=== PATIENT | male | born 1955 | race Hispanic/Latino ===

== ENCOUNTER 2017-07-28 21:50 | Inpatient (IN) | payer MEDICARE, OTHER ==
[~2017-07-28] VITALS: Ht 180.3 cm; Wt 110.2 kg
[~2017-07-28 21:50] MED LIST: AMLO10TA2 PO; CHOL200012 PO; FOLI1TAB85 PO; INSLAN SQ; RIFA550T PO; VIT B12 PO
[2017-07-28 22:14] LABS: BASOPHILS % (AUTO) 0.1 % (0.0-5.0); EOSINOPHILS % (AUTO) 0.1 % (0.0-8.0); HEMATOCRIT 40.4 % (42-54); LYMPHOCYTES % (AUTO) 4.4 % (21.0-51.0); MEAN CORPUSCULAR HEMOGLOBIN 31.1 pg (27.0-33.0); MEAN CORPUSCULAR HGB CONC 33.1 g/dL (32.0-36.0); MEAN CORPUSCULAR VOLUME 93.8 fL (79-99); MONOCYTES % (AUTO) 4.5 % (3.0-13.0); NEUTROPHILS % (AUTO) 90.9 % (40.0-77.0); NUCLEATED RED BLOOD CELLS 0.1 % (0.0-0.19); PLATELET COUNT (AUTO) 95 K/uL (130-400); RED BLOOD CELL COUNT(AUTO) 4.31 MIL/uL (4.50-6.20); RED CELL DISTRIBUTION WIDTH 16.4 % (11.0-15.5); WHITE BLOOD COUNT (AUTO) 9.8 K/uL (4.8-10.8)
[2017-07-28] MEDS ORDERED: NITROGLYCERIN 1GM/1 INCH PACKET TD ONE (22:16)
[2017-07-28 22:26] LABS: CREATININE 1.7 mg/dL (0.5-1.5); POTASSIUM 4.5 mmol/L (3.5-5.1)
[2017-07-28 22:32] LABS: ALBUMIN 2.6 g/dL (3.5-5.0); BILIRUBIN,TOTAL 0.7 mg/dL (0.2-1.0); TOTAL PROTEIN, SERUM 6.5 g/dL (6.0-8.3)
[2017-07-28 22:59] LABS: B-TYPE NATRIURETIC PEPTIDE 686 pg/mL (0-100)
[2017-07-28 23:09] LABS: INR 0.99 (0.85-1.15); PARTIAL THROMBOPLASTIN TIME 25.5 SEC (26.3-35.5); PROTHROMBIN TIME 10.4 SEC (9.6-11.6)
[2017-07-28] MEDS ORDERED: ASPIRIN 325 MG TABLET ONE (23:34)
[2017-07-29 00:25] LABS: APPEARANCE,URINE Clear (CLEAR); BILIRUBIN,URINE Negative (NEGATIVE); COLOR,URINE Yellow (YELLOW); GLUCOSE, URINE (UA) 250 mg/dL (NEGATIVE); KETONES,URINE Negative (NEGATIVE); LEUKOCYTE ESTERASE ,URINE Trace (NEGATIVE); NITRATE,URINE Negative (NEGATIVE); OCCULT BLOOD,URINE Large (NEGATIVE); PROTEIN,URINE 300 (NEGATIVE); UROBILINOGEN,URINE 0.2 mg/dL (0.2-1.0)
[2017-07-29 00:33] LABS: BACTERIA,URINE None Seen /HPF (None Seen); SQUAMOUS EPITHELIAL CELL,UR Rare /LPF (0-2); YEAST,URINE BUDDING None Seen /HPF (None Seen)
[2017-07-29] MEDS ORDERED: HYDRALAZINE HCL 20 MG/ML VIAL ONE ×2 (00:57→06:33)
[2017-07-29] MEDS ORDERED: GUAIFENESIN-DM 200/20 MG 10 ML PO PRN (01:15)
[2017-07-29] MEDS ORDERED: GLUCAGON 1MG KIT 1 MG ML IM PRN (01:15)
[2017-07-29] MEDS: LEVOFLOXACIN 500 MG/D5W 100 ML 100 ML IV SCH (01:15)
[2017-07-29] MEDS ORDERED: NITROGLYCERIN 0.4 MG SL TAB SL PRN (01:15)
[2017-07-29] MEDS: NITROGLYCERIN 1GM/1 INCH PACKET TD SCH ×5 (01:15→17:15)
[2017-07-29] MEDS ORDERED: ONDANSETRON HCL 4 MG/2 ML VIAL IV PRN (01:15)
[2017-07-29] MEDS ORDERED: DEXTROSE 50%-WATER 50 ML DISP.SYRIN IV PRN (01:15)
[2017-07-29 01:33] LABS: ABG BASE EXCESS -3.9 mmol/L (-2.0-3.0); ABG HCO3 20.4 mmol/L (21.0-28.0); ABG OXYGEN SATURATION 99.5 % (95.0-99.0); ABG PCO2 35 mmHg (35-48)
[2017-07-29 02:14] LABS: CREATINE KINASE MB 16.4 ng/mL (0.5-3.6); TROPONIN I 0.06 ng/mL (0.00-0.06)
[2017-07-29 05:32] LABS: HEMATOCRIT 34.6 % (42-54); MEAN CORPUSCULAR HEMOGLOBIN 31.9 pg (27.0-33.0); MEAN CORPUSCULAR HGB CONC 34.4 g/dL (32.0-36.0); MEAN CORPUSCULAR VOLUME 92.9 fL (79-99); PLATELET COUNT (AUTO) 87 K/uL (130-400); RED BLOOD CELL COUNT(AUTO) 3.72 MIL/uL (4.50-6.20); RED CELL DISTRIBUTION WIDTH 15.8 % (11.0-15.5); WHITE BLOOD COUNT (AUTO) 10.3 K/uL (4.8-10.8)
[2017-07-29 06:01] LABS: HEMOGLOBIN A1C 6.7 % (4.0-6.0)
[2017-07-29 06:04] LABS: ALBUMIN 2.1 g/dL (3.5-5.0); BILIRUBIN,TOTAL 0.4 mg/dL (0.2-1.0); CREATININE 1.8 mg/dL (0.5-1.5); POTASSIUM 4.2 mmol/L (3.5-5.1); THYROID STIMULATING HORMONE 1.95 uIU/mL (0.36-3.74); TOTAL PROTEIN, SERUM 5.3 g/dL (6.0-8.3)
[2017-07-29] MEDS ORDERED: NITROGLYCERIN 1GM/1 INCH PACKET TD ONE (06:33)
[2017-07-29] MEDS ORDERED: IPRATROPIUM/ALBUTEROL SULFATE 3 ML SOLUTION IH ONE ×2 (06:39→11:58)
[2017-07-29] MEDS: IPRATROPIUM/ALBUTEROL SULFATE 3 ML SOLUTION IH SCH ×4 (07:10→23:53)
[2017-07-29] MEDS: INSULIN HUMULIN R 100 UNIT/ML 3ML SQ SCH ×4 (07:30→23:34)
[2017-07-29] MEDS ORDERED: INSULIN HUMULIN R 100 UNIT/ML 3ML ONE (08:06)
[2017-07-29 08:30] LABS: CREATINE KINASE MB 11.4 ng/mL (0.5-3.6); TROPONIN I 0.06 ng/mL (0.00-0.06)
[2017-07-29] MEDS ORDERED: FUROSEMIDE 10 MG/ML 4ML VIAL ONE (08:47)
[2017-07-29] MEDS ORDERED: ASPIRIN 325 MG TABLET ONE (08:47)
[2017-07-29] MEDS ORDERED: BENZONATATE 100 MG CAPSULE PO ONE (08:47)
[2017-07-29] MEDS ORDERED: LEVOFLOXACIN 500 MG/D5W 100 ML 100 ML ONE (08:48)
[2017-07-29] MEDS ORDERED: ENOXAPARIN SODIUM 40 MG/0.4 ML SYRINGE SQ ONE (08:48)
[2017-07-29] MEDS ORDERED: FAMOTIDINE 20MG TAB 20 MG TAB ONE (08:48)
[2017-07-29] MEDS: FAMOTIDINE 20MG TAB 20 MG TAB PO SCH ×2 (09:00→21:15)
[2017-07-29] MEDS: FUROSEMIDE 10 MG/ML 4ML VIAL IVP SCH ×2 (09:00→21:15)
[2017-07-29] MEDS: ASPIRIN 325 MG TABLET PO SCH (09:00)
[2017-07-29] MEDS: BENZONATATE 100 MG CAPSULE PO SCH ×3 (09:00→21:15)
[2017-07-29] MEDS: ENOXAPARIN SODIUM 40 MG/0.4 ML SYRINGE SQ SCH (09:00)
[2017-07-29] MEDS ORDERED: LEVO500T89 PO (13:47)
[2017-07-29] MEDS ORDERED: FURO40TA5 PO (13:47)
[2017-07-29] MEDS ORDERED: BENZ-51 PO (13:47)
[2017-07-29] MEDS ORDERED: LABE100T PO (13:47)
[2017-07-29 16:00] VITALS: BP 154/87
[2017-07-29 19:36] VITALS: BP 172/91
[2017-07-29] MEDS ORDERED: METOPROLOL TARTRATE 25 MG TAB PO SCH (21:00)
[2017-07-29 23:40] VITALS: BP 170/87
[2017-07-30] VITALS (7 sets, daily range): BP systolic 147–184; BP diastolic 79–100
[2017-07-30] MEDS: NITROGLYCERIN 1GM/1 INCH PACKET TD SCH ×6 (01:30→17:50)
[2017-07-30] MEDS: LEVOFLOXACIN 500 MG/D5W 100 ML 100 ML IV SCH (01:41)
[2017-07-30] MEDS: HYDRALAZINE HCL 20 MG/ML VIAL IV PRN (03:13)
[2017-07-30 04:40] LABS: MEAN CORPUSCULAR HEMOGLOBIN 32.2 pg (27.0-33.0); MEAN CORPUSCULAR HGB CONC 34.4 g/dL (32.0-36.0); MEAN CORPUSCULAR VOLUME 93.6 fL (79-99); PLATELET COUNT (AUTO) 88 K/uL (130-400); RED BLOOD CELL COUNT(AUTO) 3.84 MIL/uL (4.50-6.20); RED CELL DISTRIBUTION WIDTH 16.5 % (11.0-15.5); WHITE BLOOD COUNT (AUTO) 9.7 K/uL (4.8-10.8)
[2017-07-30 04:56] LABS: B-TYPE NATRIURETIC PEPTIDE 419 pg/mL (0-100)
[2017-07-30 05:12] LABS: CREATINE KINASE MB 8.5 ng/mL (0.5-3.6); CREATININE 1.7 mg/dL (0.5-1.5); POTASSIUM 4.2 mmol/L (3.5-5.1); TROPONIN I 0.05 ng/mL (0.00-0.06)
[2017-07-30] MEDS: INSULIN HUMULIN R 100 UNIT/ML 3ML SQ SCH ×4 (05:45→21:58)
[2017-07-30] MEDS: IPRATROPIUM/ALBUTEROL SULFATE 3 ML SOLUTION IH SCH ×3 (06:38→18:41)
[2017-07-30] MEDS: FAMOTIDINE 20MG TAB 20 MG TAB PO SCH ×2 (09:27→22:00)
[2017-07-30] MEDS: FUROSEMIDE 10 MG/ML 4ML VIAL IVP SCH ×2 (09:27→22:00)
[2017-07-30] MEDS: ASPIRIN 325 MG TABLET PO SCH (09:27)
[2017-07-30] MEDS: METOPROLOL TARTRATE 25 MG TAB PO SCH ×2 (09:28→22:01)
[2017-07-30] MEDS: BENZONATATE 100 MG CAPSULE PO SCH ×3 (09:28→22:00)
[2017-07-30] MEDS: ENOXAPARIN SODIUM 40 MG/0.4 ML SYRINGE SQ SCH (09:28)
[2017-07-30] MEDS ORDERED: ENOXAPARIN SODIUM 120 MG/0.8ML SQ SCH (21:00)
[2017-07-30] MEDS: DOXYCYCLINE HYCLATE 100 MG TABLET PO SCH (22:00)
[2017-07-31] MEDS: LEVOFLOXACIN 500 MG/D5W 100 ML 100 ML IV SCH (01:07)
[2017-07-31] MEDS: NITROGLYCERIN 1GM/1 INCH PACKET TD SCH ×4 (01:07→09:30)
[2017-07-31 04:00] VITALS: BP 199/91
[2017-07-31 04:21] VITALS: BP 169/88
[2017-07-31 04:45] LABS: CREATININE 1.7 mg/dL (0.5-1.5); POTASSIUM 3.7 mmol/L (3.5-5.1)
[2017-07-31 05:00] VITALS: BP 174/83
[2017-07-31] MEDS: INSULIN HUMULIN R 100 UNIT/ML 3ML SQ SCH ×2 (05:38→11:44)
[2017-07-31] MEDS: IPRATROPIUM/ALBUTEROL SULFATE 3 ML SOLUTION IH SCH ×3 (06:21→11:18)
[2017-07-31 07:09] VITALS: BP 190/102
[2017-07-31] MEDS: DOXYCYCLINE HYCLATE 100 MG TABLET PO SCH (08:16)
[2017-07-31] MEDS: METOPROLOL TARTRATE 25 MG TAB PO SCH (08:16)
[2017-07-31] MEDS: BENZONATATE 100 MG CAPSULE PO SCH (08:16)
[2017-07-31] MEDS: ASPIRIN 325 MG TABLET PO SCH (08:16)
[2017-07-31] MEDS: FAMOTIDINE 20MG TAB 20 MG TAB PO SCH (08:16)
[2017-07-31] MEDS: HYDRALAZINE HCL 20 MG/ML VIAL IV PRN (08:17)
[2017-07-31] MEDS: ENOXAPARIN SODIUM 40 MG/0.4 ML SYRINGE SQ SCH (08:17)
[2017-07-31] MEDS ORDERED: FUROSEMIDE 40 MG TABLET PO SCH (09:00)
[2017-07-31] MEDS ORDERED: DOXY100T2 PO (09:50)
[2017-07-31] MEDS ORDERED: FURO40TA7 PO (09:50)
[2017-07-31 11:32] VITALS: BP 128/97
== END 2017-07-31 14:00 | disposition home or self-care (01) | DRG 291 ==
LOC: EDH 21:50 → OBSVTOIN 21:51 → EDHIP 21:51 → 2DH 07-29 12:23
PROVIDERS: ADMIT Internal Medicine; ATTEND Internal Medicine
DX: I13.0 Hypertensive heart and chronic kidney disease with heart failure and stage 1 through stage 4 chronic kidney disease, or unspecified chronic kidney disease (principal); I50.43 Acute on chronic combined systolic (congestive) and diastolic (congestive) heart failure; J96.01 Acute respiratory failure with hypoxia; D69.6 Thrombocytopenia, unspecified; E11.22 Type 2 diabetes mellitus with diabetic chronic kidney disease; K74.60 Unspecified cirrhosis of liver; N18.3 Chronic kidney disease, stage 3 (moderate); J98.11 Atelectasis; E66.9 Obesity, unspecified; F17.200 Nicotine dependence, unspecified, uncomplicated; I35.0 Nonrheumatic aortic (valve) stenosis; Z99.2 Dependence on renal dialysis; Z82.49 Family history of ischemic heart disease and other diseases of the circulatory system; Z68.33 Body mass index [BMI] 33.0-33.9, adult
CPT/HCPCS: 36415; 36600; 71045; 71250; 78582; 80048; 80053; 80061; 81001; 82550; 82553; 82803; 82948; 83036; 83874; 83880; 84443; 84484; 85025; 85027; 85378; 85610; 85730; 93005; 93306; 93970; 94640; 94660; 94664; 99291; A9540; A9558; J0360; J1650; J1815; J1940; J1956

== ENCOUNTER 2017-09-27 04:03 | Inpatient (IN) | payer SELFPAY ==
[~2017-09-27] VITALS: Ht 180.3 cm; Wt 106.1 kg
[~2017-09-27 04:03] MED LIST changes: +BENZ-51 PO; +DOXY100T2 PO; +FURO40TA7 PO; +LABE100T5 PO
[2017-09-27] MEDS ORDERED: ZOSYN 3.375GM+NS 50ML 50 ML IV ONE ×3 (04:30→21:27)
[2017-09-27] MEDS ORDERED: VANCOMYCIN 1GM+NS 250ML 250 ML IV ONE (04:30)
[2017-09-27 04:40] LABS: HEMATOCRIT 37.3 % (42-54); MEAN CORPUSCULAR HEMOGLOBIN 31.2 pg (27.0-33.0); MEAN CORPUSCULAR HGB CONC 34.3 g/dL (32.0-36.0); PLATELET COUNT (AUTO) 180 K/uL (130-400); RED CELL DISTRIBUTION WIDTH 14.3 % (11.0-15.5)
[2017-09-27 04:50] LABS: CREATININE 3.4 mg/dL (0.5-1.5); POTASSIUM 3.8 mmol/L (3.5-5.1); WHITE BLOOD COUNT (AUTO) 52.1 K/uL (4.8-10.8)
[2017-09-27 04:52] LABS: INR 1.17 (0.85-1.15); PROTHROMBIN TIME 12.2 SEC (9.6-11.6)
[2017-09-27 04:58] LABS: ABG BASE EXCESS -3.3 mmol/L (-2.0-3.0); ABG HCO3 21.2 mmol/L (21.0-28.0); ABG PCO2 37 mmHg (35-48)
[2017-09-27 05:00] LABS: ALBUMIN 1.7 g/dL (3.5-5.0); TOTAL PROTEIN, SERUM 6.4 g/dL (6.0-8.3)
[2017-09-27 05:08] LABS: BAND NEUTROPHILS % (MANUAL) 7 % (0-2); LYMPHOCYTES % (MANUAL) 3 % (22-44); MAN.DIFF COMMENT-IMPRESSION MANUAL DIFFERENTIAL; MONOCYTES % (MANUAL) 5 % (2-9); SEGMENTED NEUTROPHILS % 85 % (40-70)
[2017-09-27 05:10] LABS: PLATELET MORPHOLOGY COMMENT ADEQUATE
[2017-09-27 05:12] LABS: B-TYPE NATRIURETIC PEPTIDE 617 pg/mL (0-100)
[2017-09-27 05:44] LABS: CREATINE KINASE MB 6.6 ng/mL (0.5-3.6)
[2017-09-27 08:28] LABS: HEMATOCRIT 35.4 % (42-54); MEAN CORPUSCULAR HEMOGLOBIN 30.9 pg (27.0-33.0); MEAN CORPUSCULAR HGB CONC 34.1 g/dL (32.0-36.0); MEAN CORPUSCULAR VOLUME 90.7 fL (79-99); PLATELET COUNT (AUTO) 157 K/uL (130-400); RED CELL DISTRIBUTION WIDTH 14.2 % (11.0-15.5)
[2017-09-27 09:23] LABS: HEMOGLOBIN A1C 7.8 % (4.0-6.0)
[2017-09-27 09:38] LABS: WHITE BLOOD COUNT (AUTO) 45.8 K/uL (4.8-10.8)
[2017-09-27 09:39] LABS: BAND NEUTROPHILS % (MANUAL) 6 % (0-2); MAN.DIFF COMMENT-IMPRESSION MANUAL DIFFERENTIAL; MONOCYTES % (MANUAL) 4 % (2-9); SEGMENTED NEUTROPHILS % 90 % (40-70)
[2017-09-27 09:40] LABS: PLATELET MORPHOLOGY COMMENT ADEQUATE
[2017-09-27 10:37] LABS: APPEARANCE,URINE CLOUDY (CLEAR); BILIRUBIN,URINE SMALL (NEGATIVE); COLOR,URINE YELLOW (YELLOW); GLUCOSE, URINE (UA) NEGATIVE (NEGATIVE); KETONES,URINE 5 mg/dL (NEGATIVE); LEUKOCYTE ESTERASE ,URINE MODERATE (NEGATIVE); NITRATE,URINE NEGATIVE (NEGATIVE); OCCULT BLOOD,URINE LARGE (NEGATIVE); PROTEIN,URINE >=300 (NEGATIVE)
[2017-09-27 10:43] LABS: BACTERIA,URINE Moderate /HPF (None Seen); COARSE GRANULAR CASTS,URINE 0-2 /LPF (None Seen); SQUAMOUS EPITHELIAL CELL,UR Few /HPF (0-2); WBC,URINE TNTC /HPF (0-1)
[2017-09-27] MEDS: ZOSYN 3.375GM+NS 50ML 50 ML IV SCH ×2 (13:00→21:00)
[2017-09-27] MEDS ORDERED: CLONIDINE HCL 0.1 MG TABLET PO PRN (13:00)
[2017-09-27] MEDS ORDERED: COMPOUND IV REFRIGERATED 1 EACH IVSOLN MISC PRN (13:00)
[2017-09-27] MEDS ORDERED: VANCOMYCIN PROTOCOL PER PHARMACY IV SCH (13:00)
[2017-09-27] MEDS: VANCOMYCIN 1.5 GM in SODIUM CHLORIDE 0.9% 250 ML IV SCH (13:00)
[2017-09-27] MEDS ORDERED: LACTULOSE 20 GM/30 ML UDCUP PO PRN (13:00)
[2017-09-27] MEDS ORDERED: ONDANSETRON HCL 4 MG/2 ML VIAL IVP PRN (13:00)
[2017-09-27] MEDS: FAMOTIDINE 20MG TAB 20 MG TAB PO SCH (21:00)
[2017-09-28 00:01] LABS: CREATININE,URINE RANDOM 232 mg/dL (30-135); SODIUM,URINE RANDOM 29 mmol/l (40-220)
[2017-09-28 05:30] VITALS: BP 144/80
[2017-09-28 06:26] LABS: BASOPHILS % (AUTO) 0.7 % (0.0-5.0); EOSINOPHILS % (AUTO) 0.2 % (0.0-8.0); HEMATOCRIT 35.8 % (42-54); LYMPHOCYTES % (AUTO) 3.5 % (21.0-51.0); MEAN CORPUSCULAR HEMOGLOBIN 30.2 pg (27.0-33.0); MEAN CORPUSCULAR HGB CONC 33.7 g/dL (32.0-36.0); MEAN CORPUSCULAR VOLUME 89.6 fL (79-99); MONOCYTES % (AUTO) 2.9 % (3.0-13.0); NEUTROPHILS % (AUTO) 92.7 % (40.0-77.0); PLATELET COUNT (AUTO) 172 K/uL (130-400); RED BLOOD CELL COUNT(AUTO) 3.99 MIL/uL (4.50-6.20); RED CELL DISTRIBUTION WIDTH 14.5 % (11.0-15.5)
[2017-09-28 06:29] LABS: CREATININE 3.6 mg/dL (0.5-1.5); POTASSIUM 3.6 mmol/L (3.5-5.1)
[2017-09-28 06:32] LABS: WHITE BLOOD COUNT (AUTO) 37.6 K/uL (4.8-10.8)
[2017-09-28 08:00] VITALS: BP 143/83
[2017-09-28] MEDS ORDERED: FUROSEMIDE 10 MG/ML 10ML VIAL IVP SCH (08:15)
[2017-09-28] MEDS ORDERED: FURO40TA5 PO (09:11)
[2017-09-28] MEDS: FAMOTIDINE 20MG TAB 20 MG TAB PO SCH ×2 (09:56→21:27)
[2017-09-28] MEDS: MORPHINE SULFATE 4 MG/1ML SYG IVP PRN (09:56)
[2017-09-28] MEDS: ZOSYN 3.375GM+NS 50ML 50 ML IV SCH (10:02)
[2017-09-28] MEDS ORDERED: PHARMACY COMMUNICATION MISC SCH (11:15)
[2017-09-28] MEDS ORDERED: CEFAZOLIN 1GM / D5W 50ML 50 ML IV SCH (11:15)
[2017-09-28] MEDS: VANCOMYCIN 1.5 GM in SODIUM CHLORIDE 0.9% 250 ML IV SCH (13:00)
[2017-09-28] MEDS: CEFAZOLIN SODIUM 1 GM VIAL IVP SCH ×2 (13:09→23:57)
[2017-09-28 14:43] VITALS: BP 139/66
[2017-09-28 16:45] VITALS: BP 140/72
[2017-09-28] MEDS ORDERED: GLUCAGON 1MG KIT 1 MG ML IM PRN (17:45)
[2017-09-28] MEDS ORDERED: DEXTROSE 50%-WATER 50 ML DISP.SYRIN IV PRN (17:45)
[2017-09-28] MEDS: ZYVOX 600 MG TAB PO SCH (19:55)
[2017-09-28 20:00] VITALS: BP 140/85
[2017-09-28] MEDS: LABETALOL HCL 100 MG TABLET PO SCH (21:27)
[2017-09-28] MEDS: INSULIN HUMULIN R 100 UNIT/ML 3ML SQ SCH (21:43)
[2017-09-29] VITALS (7 sets, daily range): BP systolic 126–156; BP diastolic 67–91
[2017-09-29] MEDS: MORPHINE SULFATE 4 MG/1ML SYG IVP PRN ×2 (04:51→11:20)
[2017-09-29] MEDS: ZYVOX 600 MG TAB PO SCH ×2 (04:52→16:46)
[2017-09-29 06:17] LABS: BASOPHILS % (AUTO) 0.5 % (0.0-5.0); EOSINOPHILS % (AUTO) 0.5 % (0.0-8.0); HEMATOCRIT 33.1 % (42-54); MEAN CORPUSCULAR HEMOGLOBIN 31.5 pg (27.0-33.0); MEAN CORPUSCULAR HGB CONC 35.2 g/dL (32.0-36.0); MEAN CORPUSCULAR VOLUME 89.7 fL (79-99); PLATELET COUNT (AUTO) 170 K/uL (130-400); RED BLOOD CELL COUNT(AUTO) 3.69 MIL/uL (4.50-6.20); RED CELL DISTRIBUTION WIDTH 13.9 % (11.0-15.5)
[2017-09-29 06:35] LABS: CREATININE 3.2 mg/dL (0.5-1.5); POTASSIUM 3.6 mmol/L (3.5-5.1)
[2017-09-29] MEDS: INSULIN HUMULIN R 100 UNIT/ML 3ML SQ SCH ×4 (06:49→21:00)
[2017-09-29] MEDS ORDERED: FUROSEMIDE 10 MG/ML 10ML VIAL IVP SCH (08:15)
[2017-09-29] MEDS: FAMOTIDINE 20MG TAB 20 MG TAB PO SCH ×2 (11:19→21:16)
[2017-09-29] MEDS: LABETALOL HCL 100 MG TABLET PO SCH ×2 (11:19→21:16)
[2017-09-29] MEDS: CEFAZOLIN SODIUM 1 GM VIAL IVP SCH (11:20)
[2017-09-29] MEDS: ONDANSETRON HCL MDV 20ML 2 MG/ML VIAL IVP PRN (18:02)
[2017-09-30] MEDS: CEFAZOLIN SODIUM 1 GM VIAL IVP SCH ×2 (00:30→09:53)
[2017-09-30] MEDS: MORPHINE SULFATE 4 MG/1ML SYG IVP PRN ×2 (01:36→11:33)
[2017-09-30 04:41] VITALS: BP 129/77
[2017-09-30] MEDS: ZYVOX 600 MG TAB PO SCH ×2 (05:14→18:24)
[2017-09-30 05:50] LABS: BASOPHILS % (AUTO) 0.5 % (0.0-5.0); EOSINOPHILS % (AUTO) 0.8 % (0.0-8.0); HEMATOCRIT 34.4 % (42-54); LYMPHOCYTES % (AUTO) 7.4 % (21.0-51.0); MEAN CORPUSCULAR HEMOGLOBIN 31.1 pg (27.0-33.0); MEAN CORPUSCULAR HGB CONC 34.7 g/dL (32.0-36.0); MEAN CORPUSCULAR VOLUME 89.6 fL (79-99); MONOCYTES % (AUTO) 12.3 % (3.0-13.0); PLATELET COUNT (AUTO) 192 K/uL (130-400); RED BLOOD CELL COUNT(AUTO) 3.84 MIL/uL (4.50-6.20); WHITE BLOOD COUNT (AUTO) 14.4 K/uL (4.8-10.8)
[2017-09-30 06:20] LABS: CREATININE 2.9 mg/dL (0.5-1.5); POTASSIUM 3.7 mmol/L (3.5-5.1)
[2017-09-30] MEDS: INSULIN HUMULIN R 100 UNIT/ML 3ML SQ SCH ×4 (06:59→21:52)
[2017-09-30 08:00] VITALS: BP 134/76
[2017-09-30] MEDS: FAMOTIDINE 20MG TAB 20 MG TAB PO SCH ×2 (09:53→20:40)
[2017-09-30] MEDS: LABETALOL HCL 100 MG TABLET PO SCH ×2 (09:53→23:59)
[2017-09-30] MEDS: ONDANSETRON HCL MDV 20ML 2 MG/ML VIAL IVP PRN (11:32)
[2017-09-30 12:00] VITALS: BP 149/85
[2017-09-30 16:00] VITALS: BP 139/65
[2017-09-30] MEDS: TRAMADOL HCL 50 MG TABLET PO PRN (18:24)
[2017-09-30] MEDS: ENOXAPARIN SODIUM 30 MG/0.3 ML SQ SCH (18:24)
[2017-09-30 19:48] VITALS: BP 125/59
[2017-09-30] MEDS: FUROSEMIDE 10 MG/ML 2ML VIAL IVP SCH (20:40)
[2017-09-30 23:36] VITALS: BP 122/71
[2017-10-01 04:30] VITALS: BP 134/77
[2017-10-01 04:57] LABS: HEMATOCRIT 32.7 % (42-54); MEAN CORPUSCULAR HEMOGLOBIN 30.6 pg (27.0-33.0); MEAN CORPUSCULAR HGB CONC 33.9 g/dL (32.0-36.0); MEAN CORPUSCULAR VOLUME 90.3 fL (79-99); PLATELET COUNT (AUTO) 184 K/uL (130-400); RED BLOOD CELL COUNT(AUTO) 3.63 MIL/uL (4.50-6.20); RED CELL DISTRIBUTION WIDTH 14.5 % (11.0-15.5)
[2017-10-01 05:06] LABS: CREATININE 2.9 mg/dL (0.5-1.5); POTASSIUM 4.2 mmol/L (3.5-5.1)
[2017-10-01] MEDS: ZYVOX 600 MG TAB PO SCH ×2 (05:25→17:27)
[2017-10-01] MEDS: TRAMADOL HCL 50 MG TABLET PO PRN (05:26)
[2017-10-01] MEDS: INSULIN HUMULIN R 100 UNIT/ML 3ML SQ SCH ×4 (07:05→22:38)
[2017-10-01 07:30] VITALS: BP 125/67
[2017-10-01] MEDS ORDERED: ENOXAPARIN SODIUM 30 MG/0.3 ML SQ SCH (09:00)
[2017-10-01] MEDS: LABETALOL HCL 100 MG TABLET PO SCH ×2 (10:06→22:04)
[2017-10-01] MEDS: FUROSEMIDE 10 MG/ML 2ML VIAL IVP SCH ×2 (10:06→22:03)
[2017-10-01] MEDS: ENOXAPARIN SODIUM 30 MG/0.3 ML SQ SCH (10:06)
[2017-10-01] MEDS: FAMOTIDINE 20MG TAB 20 MG TAB PO SCH ×2 (10:06→22:03)
[2017-10-01 11:00] VITALS: BP 137/73
[2017-10-01] MEDS: CEFAZOLIN SODIUM 1 GM VIAL IVP SCH ×3 (12:47→23:31)
[2017-10-01] MEDS: MORPHINE SULFATE 4 MG/1ML SYG IVP PRN (15:45)
[2017-10-01 16:00] VITALS: BP 139/79
[2017-10-01 19:47] VITALS: BP 125/84
[2017-10-02 00:01] VITALS: BP 118/60
[2017-10-02 03:30] VITALS: BP 138/81
[2017-10-02] MEDS: ZYVOX 600 MG TAB PO SCH ×2 (03:47→17:42)
[2017-10-02] MEDS: TRAMADOL HCL 50 MG TABLET PO PRN ×3 (03:48→23:49)
[2017-10-02 04:45] LABS: HEMATOCRIT 34.1 % (42-54); MEAN CORPUSCULAR HEMOGLOBIN 31.1 pg (27.0-33.0); MEAN CORPUSCULAR HGB CONC 34.3 g/dL (32.0-36.0); MEAN CORPUSCULAR VOLUME 90.8 fL (79-99); NUCLEATED RED BLOOD CELLS 0.1 % (0.0-0.19); PLATELET COUNT (AUTO) 211 K/uL (130-400); RED BLOOD CELL COUNT(AUTO) 3.76 MIL/uL (4.50-6.20); RED CELL DISTRIBUTION WIDTH 14.3 % (11.0-15.5); WHITE BLOOD COUNT (AUTO) 8.9 K/uL (4.8-10.8)
[2017-10-02 05:00] LABS: CREATININE 2.7 mg/dL (0.5-1.5); POTASSIUM 3.7 mmol/L (3.5-5.1)
[2017-10-02] MEDS: INSULIN HUMULIN R 100 UNIT/ML 3ML SQ SCH ×4 (06:19→22:23)
[2017-10-02 08:00] VITALS: BP 146/80
[2017-10-02] MEDS: ENOXAPARIN SODIUM 30 MG/0.3 ML SQ SCH (10:03)
[2017-10-02] MEDS: LABETALOL HCL 100 MG TABLET PO SCH ×2 (10:03→20:51)
[2017-10-02] MEDS: FAMOTIDINE 20MG TAB 20 MG TAB PO SCH ×2 (10:03→20:50)
[2017-10-02] MEDS: FUROSEMIDE 10 MG/ML 2ML VIAL IVP SCH ×2 (10:04→20:50)
[2017-10-02 12:00] VITALS: BP 134/79
[2017-10-02] MEDS: CEFAZOLIN SODIUM 1 GM VIAL IVP SCH ×2 (12:37→23:03)
[2017-10-02] MEDS: MORPHINE SULFATE 4 MG/1ML SYG IVP PRN (12:37)
[2017-10-02 16:35] VITALS: BP 150/83
[2017-10-02 20:00] VITALS: BP 145/79
[2017-10-03 00:04] VITALS: BP 136/75
[2017-10-03] MEDS: ZYVOX 600 MG TAB PO SCH ×2 (04:49→16:37)
[2017-10-03 05:07] VITALS: BP 118/63
[2017-10-03] MEDS: INSULIN HUMULIN R 100 UNIT/ML 3ML SQ SCH ×4 (06:02→20:40)
[2017-10-03] MEDS: TRAMADOL HCL 50 MG TABLET PO PRN ×2 (07:02→16:37)
[2017-10-03 08:05] VITALS: BP 154/86
[2017-10-03] MEDS: LABETALOL HCL 100 MG TABLET PO SCH ×2 (08:41→20:35)
[2017-10-03] MEDS: FAMOTIDINE 20MG TAB 20 MG TAB PO SCH ×2 (08:42→20:35)
[2017-10-03] MEDS: FUROSEMIDE 10 MG/ML 2ML VIAL IVP SCH ×2 (08:42→20:36)
[2017-10-03] MEDS: ENOXAPARIN SODIUM 30 MG/0.3 ML SQ SCH (08:43)
[2017-10-03] MEDS: MORPHINE SULFATE 4 MG/1ML SYG IVP PRN (10:30)
[2017-10-03 10:35] LABS: HEMATOCRIT 32.3 % (42-54); MEAN CORPUSCULAR HEMOGLOBIN 30.3 pg (27.0-33.0); MEAN CORPUSCULAR HGB CONC 33.4 g/dL (32.0-36.0); MEAN CORPUSCULAR VOLUME 90.6 fL (79-99); PLATELET COUNT (AUTO) 182 K/uL (130-400); RED BLOOD CELL COUNT(AUTO) 3.57 MIL/uL (4.50-6.20); RED CELL DISTRIBUTION WIDTH 14.3 % (11.0-15.5); WHITE BLOOD COUNT (AUTO) 7.6 K/uL (4.8-10.8)
[2017-10-03 11:07] LABS: CREATININE 2.3 mg/dL (0.5-1.5); POTASSIUM 4.1 mmol/L (3.5-5.1)
[2017-10-03] MEDS: CEFAZOLIN SODIUM 1 GM VIAL IVP SCH ×2 (11:18→23:16)
[2017-10-03 11:55] VITALS: BP 131/65
[2017-10-03 16:00] VITALS: BP 136/64
[2017-10-03 19:20] VITALS: BP 135/79
[2017-10-04 00:43] VITALS: BP 161/84
[2017-10-04] MEDS: TRAMADOL HCL 50 MG TABLET PO PRN ×2 (00:49→09:42)
[2017-10-04] MEDS: ZYVOX 600 MG TAB PO SCH (05:11)
[2017-10-04 05:25] VITALS: BP 141/77
[2017-10-04] MEDS: INSULIN HUMULIN R 100 UNIT/ML 3ML SQ SCH ×2 (07:01→11:35)
[2017-10-04 07:25] VITALS: BP 145/77
[2017-10-04] MEDS: ENOXAPARIN SODIUM 30 MG/0.3 ML SQ SCH (09:00)
[2017-10-04] MEDS: FAMOTIDINE 20MG TAB 20 MG TAB PO SCH (09:34)
[2017-10-04] MEDS: LABETALOL HCL 100 MG TABLET PO SCH (09:34)
[2017-10-04] MEDS: FUROSEMIDE 10 MG/ML 2ML VIAL IVP SCH (09:34)
[2017-10-04 11:30] VITALS: BP 143/78
[2017-10-04] MEDS: CEFAZOLIN SODIUM 1 GM VIAL IVP SCH (11:33)
== END 2017-10-04 15:10 | disposition home or self-care (01) | DRG 872 ==
LOC: EDH 04:03 → EDHIP 04:04 → 4CH 09-28 04:08 → EDHIP 09-28 04:11 → 4CH 09-28 04:21 → 4BH 10-02 16:07
PROVIDERS: ADMIT Family Medicine; ATTEND Family Medicine
DX: A41.9 Sepsis, unspecified organism (principal); E11.22 Type 2 diabetes mellitus with diabetic chronic kidney disease; E11.622 Type 2 diabetes mellitus with other skin ulcer; N17.9 Acute kidney failure, unspecified; N18.4 Chronic kidney disease, stage 4 (severe); L03.116 Cellulitis of left lower limb; I13.0 Hypertensive heart and chronic kidney disease with heart failure and stage 1 through stage 4 chronic kidney disease, or unspecified chronic kidney disease; L97.929 Non-pressure chronic ulcer of unspecified part of left lower leg with unspecified severity; L03.115 Cellulitis of right lower limb; I50.9 Heart failure, unspecified; K70.30 Alcoholic cirrhosis of liver without ascites; N18.9 Chronic kidney disease, unspecified; T63.441A Toxic effect of venom of bees, accidental (unintentional), initial encounter; E11.65 Type 2 diabetes mellitus with hyperglycemia; E66.01 Morbid (severe) obesity due to excess calories; Z99.81 Dependence on supplemental oxygen; Z68.32 Body mass index [BMI] 32.0-32.9, adult; Z82.49 Family history of ischemic heart disease and other diseases of the circulatory system; Z83.3 Family history of diabetes mellitus
CPT/HCPCS: 36415; 36600; 71045; 76770; 80048; 80053; 80202; 80339; 81001; 82550; 82553; 82570; 82803; 82948; 83036; 83605; 83874; 83880; 84300; 84484; 84540; 85007; 85025; 85027; 85610; 85730; 87040; 87070; 87076; 87077; 87088; 87186; 93005; 93970; 97039; A4218; J0690; J1650; J1815; J1940; J2270; J2543; J3370; J7030

== ENCOUNTER 2017-11-21 10:25 | Inpatient (IN) | payer SELFPAY ==
[2017-11-21] VITALS: BP 169/84
[~2017-11-21] VITALS: Ht 180.3 cm; Wt 112.1 kg
[~2017-11-21 10:25] MED LIST changes: -AMLO10TA2 PO; -BENZ-51 PO; -CHOL200012 PO; -DOXY100T2 PO; -FOLI1TAB85 PO; +FURO40TA5 PO; -FURO40TA7 PO; -INSLAN SQ; -RIFA550T PO; -VIT B12 PO
[2017-11-21 11:20] LABS: CREATININE 1.7 mg/dL (0.5-1.5); EOSINOPHILS % (AUTO) 2.9 % (0.0-8.0); HEMATOCRIT 33.6 % (42-54); LYMPHOCYTES % (AUTO) 18.1 % (21.0-51.0); MEAN CORPUSCULAR HEMOGLOBIN 30.3 pg (27.0-33.0); MEAN CORPUSCULAR HGB CONC 33.5 g/dL (32.0-36.0); MEAN CORPUSCULAR VOLUME 90.5 fL (79-99); MONOCYTES % (AUTO) 10.7 % (3.0-13.0); NEUTROPHILS % (AUTO) 67.3 % (40.0-77.0); PLATELET COUNT (AUTO) 222 K/uL (130-400); POTASSIUM 3.8 mmol/L (3.5-5.1); RED BLOOD CELL COUNT(AUTO) 3.71 MIL/uL (4.50-6.20); RED CELL DISTRIBUTION WIDTH 14.9 % (11.0-15.5); WHITE BLOOD COUNT (AUTO) 8.7 K/uL (4.8-10.8)
[2017-11-21 11:25] LABS: ALBUMIN 2.2 g/dL (3.5-5.0); BILIRUBIN,TOTAL 0.4 mg/dL (0.2-1.0); TOTAL PROTEIN, SERUM 7.9 g/dL (6.0-8.3)
[2017-11-21] MEDS ORDERED: ZOSYN 3.375GM+NS 50ML 50 ML IV ONE ×2 (11:44→19:24)
[2017-11-21] MEDS ORDERED: VANCOMYCIN 1.75 GM in SODIUM CHLORIDE 0.9% 250 ML IV SCH (12:00)
[2017-11-21 12:21] LABS: APPEARANCE,URINE Clear (CLEAR); BILIRUBIN,URINE Negative (NEGATIVE); COLOR,URINE Yellow (YELLOW); GLUCOSE, URINE (UA) Negative (NEGATIVE); KETONES,URINE Negative (NEGATIVE); LEUKOCYTE ESTERASE ,URINE Negative (NEGATIVE); NITRATE,URINE Negative (NEGATIVE); OCCULT BLOOD,URINE Moderate (NEGATIVE); PROTEIN,URINE 300 (NEGATIVE); UROBILINOGEN,URINE 0.2 mg/dL (0.2-1.0)
[2017-11-21 12:31] LABS: SQUAMOUS EPITHELIAL CELL,UR 0-2 /HPF (0-2)
[2017-11-21 12:32] LABS: BACTERIA,URINE Few /HPF (None Seen)
[2017-11-21] MEDS ORDERED: GLUCAGON 1MG KIT 1 MG ML IM PRN (19:15)
[2017-11-21] MEDS ORDERED: DEXTROSE 50%-WATER 50 ML DISP.SYRIN IV PRN (19:15)
[2017-11-21 20:25] VITALS: BP 169/94
[2017-11-21] MEDS: INSULIN HUMULIN R 100 UNIT/ML 3ML SQ SCH (21:00)
[2017-11-21] MEDS: FAMOTIDINE 20MG TAB 20 MG TAB PO SCH (21:17)
[2017-11-22 04:22] VITALS: BP 146/78
[2017-11-22] MEDS: ZOSYN 3.375GM+NS 50ML 50 ML IV SCH ×3 (04:59→20:45)
[2017-11-22 05:41] LABS: BASOPHILS % (AUTO) 0.8 % (0.0-5.0); EOSINOPHILS % (AUTO) 2.9 % (0.0-8.0); HEMATOCRIT 32.7 % (42-54); LYMPHOCYTES % (AUTO) 19.1 % (21.0-51.0); MEAN CORPUSCULAR HEMOGLOBIN 30.4 pg (27.0-33.0); MEAN CORPUSCULAR HGB CONC 33.3 g/dL (32.0-36.0); MEAN CORPUSCULAR VOLUME 91.3 fL (79-99); MONOCYTES % (AUTO) 11.4 % (3.0-13.0); NEUTROPHILS % (AUTO) 65.8 % (40.0-77.0); PLATELET COUNT (AUTO) 232 K/uL (130-400); RED BLOOD CELL COUNT(AUTO) 3.58 MIL/uL (4.50-6.20); RED CELL DISTRIBUTION WIDTH 14.8 % (11.0-15.5); WHITE BLOOD COUNT (AUTO) 8.2 K/uL (4.8-10.8)
[2017-11-22] MEDS: INSULIN HUMULIN R 100 UNIT/ML 3ML SQ SCH ×4 (05:46→20:45)
[2017-11-22 05:51] LABS: HEMOGLOBIN A1C 5.5 % (4.0-6.0)
[2017-11-22 05:54] LABS: ALBUMIN 2.1 g/dL (3.5-5.0); BILIRUBIN,TOTAL 0.5 mg/dL (0.2-1.0); CREATININE 1.7 mg/dL (0.5-1.5); POTASSIUM 3.4 mmol/L (3.5-5.1); TOTAL PROTEIN, SERUM 7.3 g/dL (6.0-8.3)
[2017-11-22] MEDS ORDERED: HYDRALAZINE HCL 20 MG/ML VIAL IV PRN (06:15)
[2017-11-22 07:00] VITALS: BP 187/94
[2017-11-22] MEDS: FAMOTIDINE 20MG TAB 20 MG TAB PO SCH ×2 (08:59→20:44)
[2017-11-22] MEDS: ENOXAPARIN SODIUM 40 MG/0.4 ML SYRINGE SQ SCH (09:12)
[2017-11-22 11:00] VITALS: BP 163/80
[2017-11-22] MEDS ORDERED: GLIP5TAB11 PO (15:33)
[2017-11-22 16:00] VITALS: BP 197/92
[2017-11-22 19:00] VITALS: BP 194/102
[2017-11-22] MEDS: LABETALOL HCL 100 MG TABLET PO SCH (20:44)
[2017-11-22] MEDS: HYDRALAZINE HCL 25 MG TABLET PO SCH (20:45)
[2017-11-22] MEDS: IPRATROPIUM/ALBUTEROL SULFATE 3 ML SOLUTION IH SCH (21:03)
[2017-11-23] VITALS (25 sets, daily range): BP systolic 130–178; BP diastolic 60–102
[2017-11-23] MEDS: IPRATROPIUM/ALBUTEROL SULFATE 3 ML SOLUTION IH SCH ×5 (00:21→23:04)
[2017-11-23] MEDS: ZOSYN 3.375GM+NS 50ML 50 ML IV SCH ×3 (05:30→19:57)
[2017-11-23 06:16] LABS: BASOPHILS % (AUTO) 0.5 % (0.0-5.0); EOSINOPHILS % (AUTO) 3.2 % (0.0-8.0); HEMATOCRIT 29.1 % (42-54); LYMPHOCYTES % (AUTO) 22.6 % (21.0-51.0); MEAN CORPUSCULAR HEMOGLOBIN 32.1 pg (27.0-33.0); MEAN CORPUSCULAR HGB CONC 35.7 g/dL (32.0-36.0); MONOCYTES % (AUTO) 12.3 % (3.0-13.0); NEUTROPHILS % (AUTO) 61.4 % (40.0-77.0); PLATELET COUNT (AUTO) 197 K/uL (130-400); RED BLOOD CELL COUNT(AUTO) 3.23 MIL/uL (4.50-6.20); RED CELL DISTRIBUTION WIDTH 14.4 % (11.0-15.5); WHITE BLOOD COUNT (AUTO) 6.4 K/uL (4.8-10.8)
[2017-11-23 06:47] LABS: INR 1.02 (0.85-1.15); PARTIAL THROMBOPLASTIN TIME 30.3 SEC (26.3-35.5); PROTHROMBIN TIME 10.7 SEC (9.6-11.6)
[2017-11-23 07:24] LABS: CREATININE 1.7 mg/dL (0.5-1.5); POTASSIUM 3.4 mmol/L (3.5-5.1)
[2017-11-23] MEDS: INSULIN HUMULIN R 100 UNIT/ML 3ML SQ SCH ×4 (07:30→21:33)
[2017-11-23] MEDS: LABETALOL HCL 100 MG TABLET PO SCH ×2 (08:16→20:01)
[2017-11-23] MEDS: GLIPIZIDE 5 MG TABLET PO SCH (09:00)
[2017-11-23] MEDS: ENOXAPARIN SODIUM 40 MG/0.4 ML SYRINGE SQ SCH (09:00)
[2017-11-23] MEDS: HYDRALAZINE HCL 25 MG TABLET PO SCH ×3 (09:00→20:02)
[2017-11-23] MEDS ORDERED: VANCOMYCIN PROTOCOL PER PHARMACY IV SCH (10:15)
[2017-11-23] MEDS ORDERED: COMPOUND IV REFRIGERATED 1 EACH IVSOLN MISC PRN (10:30)
[2017-11-23] MEDS: VANCOMYCIN 1.5 GM in SODIUM CHLORIDE 0.9% 250 ML IV SCH (11:15)
[2017-11-23] MEDS ORDERED: SODIUM CHLORIDE 0.9% 1000ML 1,000 ML IV ONE (12:55)
[2017-11-23] MEDS ORDERED: MIDAZOLAM HCL 1 MG/ML 2ML VIAL ONE (13:58)
[2017-11-23] MEDS: SODIUM CHLORIDE 0.9% 1000ML 1,000 ML IV SCH (14:51)
[2017-11-23] MEDS ORDERED: MORPHINE SULFATE 2 MG/ML 1ML SYG IV PRN (15:00)
[2017-11-23] MEDS: FAMOTIDINE 20MG TAB 20 MG TAB PO SCH ×2 (16:45→20:02)
[2017-11-23] MEDS: FUROSEMIDE 40 MG TABLET PO SCH (16:46)
[2017-11-24 00:32] VITALS: BP 123/62
[2017-11-24 04:27] VITALS: BP 135/73
[2017-11-24] MEDS: ZOSYN 3.375GM+NS 50ML 50 ML IV SCH ×2 (05:08→13:53)
[2017-11-24 05:47] LABS: BASOPHILS % (AUTO) 1.1 % (0.0-5.0); EOSINOPHILS % (AUTO) 2.3 % (0.0-8.0); HEMATOCRIT 27.4 % (42-54); LYMPHOCYTES % (AUTO) 21.7 % (21.0-51.0); MEAN CORPUSCULAR HEMOGLOBIN 30.7 pg (27.0-33.0); MEAN CORPUSCULAR HGB CONC 33.7 g/dL (32.0-36.0); MONOCYTES % (AUTO) 12.4 % (3.0-13.0); NEUTROPHILS % (AUTO) 62.5 % (40.0-77.0); PLATELET COUNT (AUTO) 183 K/uL (130-400); RED BLOOD CELL COUNT(AUTO) 3.01 MIL/uL (4.50-6.20); RED CELL DISTRIBUTION WIDTH 14.4 % (11.0-15.5); WHITE BLOOD COUNT (AUTO) 7.2 K/uL (4.8-10.8)
[2017-11-24] MEDS: IPRATROPIUM/ALBUTEROL SULFATE 3 ML SOLUTION IH SCH ×4 (06:02→23:54)
[2017-11-24 06:11] LABS: CREATININE 1.8 mg/dL (0.5-1.5); POTASSIUM 3.5 mmol/L (3.5-5.1)
[2017-11-24] MEDS: INSULIN HUMULIN R 100 UNIT/ML 3ML SQ SCH ×4 (06:43→21:00)
[2017-11-24 08:00] VITALS: BP 153/74
[2017-11-24] MEDS ORDERED: POTASSIUM CHLORIDE 10% ELIXIR 20 MEQ/15 ML UDCUP PO PRN (08:30)
[2017-11-24] MEDS ORDERED: POTASSIUM CHLORIDE 20MEQ/100ML 100 ML IV PRN (08:30)
[2017-11-24] MEDS ORDERED: POTASSIUM CHLORIDE 20 MEQ ERTAB PO PRN (08:30)
[2017-11-24] MEDS ORDERED: LIDOCAINE HCL-MPF 1% 2ML VIAL IVP PRN (08:30)
[2017-11-24] MEDS: SODIUM CHLORIDE 0.9% 1000ML 1,000 ML IV SCH ×2 (09:02→17:31)
[2017-11-24] MEDS: FAMOTIDINE 20MG TAB 20 MG TAB PO SCH ×2 (09:05→21:25)
[2017-11-24] MEDS: HYDRALAZINE HCL 25 MG TABLET PO SCH ×3 (09:05→21:26)
[2017-11-24] MEDS: GLIPIZIDE 5 MG TABLET PO SCH (09:06)
[2017-11-24] MEDS: FUROSEMIDE 40 MG TABLET PO SCH (09:07)
[2017-11-24] MEDS: LABETALOL HCL 100 MG TABLET PO SCH ×2 (09:07→21:25)
[2017-11-24] MEDS: ENOXAPARIN SODIUM 40 MG/0.4 ML SYRINGE SQ SCH (09:09)
[2017-11-24] MEDS: VANCOMYCIN 1.5 GM in SODIUM CHLORIDE 0.9% 250 ML IV SCH (11:28)
[2017-11-24 12:00] VITALS: BP 114/72
[2017-11-24] MEDS ORDERED: HONEY 1 APPL/ML TUBE TP SCH (13:30)
[2017-11-24 16:00] VITALS: BP 137/78
[2017-11-24 20:33] VITALS: BP 149/85
[2017-11-25 00:14] VITALS: BP 138/75
[2017-11-25 04:32] VITALS: BP 153/80
[2017-11-25 05:49] LABS: BASOPHILS % (AUTO) 0.5 % (0.0-5.0); EOSINOPHILS % (AUTO) 3.9 % (0.0-8.0); HEMATOCRIT 28.6 % (42-54); LYMPHOCYTES % (AUTO) 22.2 % (21.0-51.0); MEAN CORPUSCULAR HEMOGLOBIN 29.6 pg (27.0-33.0); MEAN CORPUSCULAR HGB CONC 32.8 g/dL (32.0-36.0); MEAN CORPUSCULAR VOLUME 90.2 fL (79-99); MONOCYTES % (AUTO) 14.1 % (3.0-13.0); NEUTROPHILS % (AUTO) 59.3 % (40.0-77.0); PLATELET COUNT (AUTO) 151 K/uL (130-400); RED BLOOD CELL COUNT(AUTO) 3.18 MIL/uL (4.50-6.20); RED CELL DISTRIBUTION WIDTH 14.7 % (11.0-15.5); WHITE BLOOD COUNT (AUTO) 5.7 K/uL (4.8-10.8)
[2017-11-25 05:57] LABS: CREATININE 1.8 mg/dL (0.5-1.5)
[2017-11-25] MEDS: SODIUM CHLORIDE 0.9% 1000ML 1,000 ML IV SCH ×2 (06:51→20:11)
[2017-11-25] MEDS: IPRATROPIUM/ALBUTEROL SULFATE 3 ML SOLUTION IH SCH ×3 (07:10→18:46)
[2017-11-25] MEDS: INSULIN HUMULIN R 100 UNIT/ML 3ML SQ SCH ×4 (07:30→20:58)
[2017-11-25 08:00] VITALS: BP 155/86
[2017-11-25] MEDS: LABETALOL HCL 100 MG TABLET PO SCH ×2 (08:13→20:54)
[2017-11-25] MEDS: GLIPIZIDE 5 MG TABLET PO SCH (08:13)
[2017-11-25] MEDS: FUROSEMIDE 40 MG TABLET PO SCH (08:13)
[2017-11-25] MEDS: FAMOTIDINE 20MG TAB 20 MG TAB PO SCH ×2 (08:13→20:53)
[2017-11-25] MEDS: ENOXAPARIN SODIUM 40 MG/0.4 ML SYRINGE SQ SCH (08:16)
[2017-11-25] MEDS: HYDRALAZINE HCL 25 MG TABLET PO SCH ×3 (09:00→20:54)
[2017-11-25 11:57] VITALS: BP 137/62
[2017-11-25 17:32] VITALS: BP 142/74
[2017-11-25 21:00] VITALS: BP 144/81
[2017-11-25] MEDS ORDERED: LEVOFLOXACIN 500 MG TABLET PO SCH (21:00)
[2017-11-26] MEDS: IPRATROPIUM/ALBUTEROL SULFATE 3 ML SOLUTION IH SCH ×3 (00:07→11:36)
[2017-11-26 00:37] VITALS: BP 134/76
[2017-11-26 04:43] VITALS: BP 133/72
[2017-11-26] MEDS: INSULIN HUMULIN R 100 UNIT/ML 3ML SQ SCH ×3 (06:02→16:30)
[2017-11-26 08:00] VITALS: BP 171/88
[2017-11-26] MEDS: FUROSEMIDE 40 MG TABLET PO SCH (09:17)
[2017-11-26] MEDS: GLIPIZIDE 5 MG TABLET PO SCH (09:17)
[2017-11-26] MEDS: LABETALOL HCL 100 MG TABLET PO SCH (09:17)
[2017-11-26] MEDS: HYDRALAZINE HCL 25 MG TABLET PO SCH ×2 (09:17→14:00)
[2017-11-26] MEDS: FAMOTIDINE 20MG TAB 20 MG TAB PO SCH (09:17)
[2017-11-26] MEDS: ENOXAPARIN SODIUM 40 MG/0.4 ML SYRINGE SQ SCH (09:18)
[2017-11-26] MEDS: SODIUM CHLORIDE 0.9% 1000ML 1,000 ML IV SCH (09:31)
[2017-11-26 09:52] LABS: POTASSIUM 3.7 mmol/L (3.5-5.1)
[2017-11-26 11:00] VITALS: BP 152/71
== END 2017-11-26 16:55 | disposition home or self-care (01) | DRG 623 ==
LOC: EDH 10:25 → EDHIP 10:26 → 3AH 20:05
PROVIDERS: ADMIT Family Medicine; ATTEND Family Medicine
PROC: 0JBP0ZZ Excision of Left Lower Leg Subcutaneous Tissue and Fascia, Open Approach (ICD-10-PCS; principal; 2017-11-23 13:44)
DX: E11.622 Type 2 diabetes mellitus with other skin ulcer (principal); L03.116 Cellulitis of left lower limb; I13.2 Hypertensive heart and chronic kidney disease with heart failure and with stage 5 chronic kidney disease, or end stage renal disease; L97.929 Non-pressure chronic ulcer of unspecified part of left lower leg with unspecified severity; N18.6 End stage renal disease; D64.9 Anemia, unspecified; K74.60 Unspecified cirrhosis of liver; B96.4 Proteus (mirabilis) (morganii) as the cause of diseases classified elsewhere; E11.22 Type 2 diabetes mellitus with diabetic chronic kidney disease; E11.51 Type 2 diabetes mellitus with diabetic peripheral angiopathy without gangrene; E66.9 Obesity, unspecified; Z68.34 Body mass index [BMI] 34.0-34.9, adult; F10.10 Alcohol abuse, uncomplicated; F17.200 Nicotine dependence, unspecified, uncomplicated; G40.909 Epilepsy, unspecified, not intractable, without status epilepticus; I25.10 Atherosclerotic heart disease of native coronary artery without angina pectoris; I50.9 Heart failure, unspecified; J44.9 Chronic obstructive pulmonary disease, unspecified; Z82.49 Family history of ischemic heart disease and other diseases of the circulatory system; Z83.3 Family history of diabetes mellitus; Z86.14 Personal history of Methicillin resistant Staphylococcus aureus infection; I87.8 Other specified disorders of veins; Z28.21 Immunization not carried out because of patient refusal
CPT/HCPCS: 36415; 71045; 73590; 80048; 80053; 80202; 81001; 82140; 82948; 83036; 83605; 83880; 84132; 84484; 85025; 85610; 85730; 87040; 87070; 87076; 87077; 87186; 88304; 93005; 93970; 94640; 94664; J0360; J1650; J1815; J2250; J2543; J3370; J7030; J7070

== ENCOUNTER → 2017-11-29 | Outpatient (CLI) | payer SELFPAY ==
[~2017-11-29] MED LIST changes: +GLIP5TAB11 PO; +LABE100T PO; -LABE100T5 PO
[2017-11-29 11:07] VITALS: BP 196/101
== END | disposition home or self-care (01) ==
LOC: WHH 10:00
PROVIDERS: ATTEND Surgery
DX: E11.622 Type 2 diabetes mellitus with other skin ulcer (principal); L97.821 Non-pressure chronic ulcer of other part of left lower leg limited to breakdown of skin; I87.2 Venous insufficiency (chronic) (peripheral); E11.22 Type 2 diabetes mellitus with diabetic chronic kidney disease; I13.2 Hypertensive heart and chronic kidney disease with heart failure and with stage 5 chronic kidney disease, or end stage renal disease; N18.6 End stage renal disease; I50.9 Heart failure, unspecified; E11.51 Type 2 diabetes mellitus with diabetic peripheral angiopathy without gangrene; I25.10 Atherosclerotic heart disease of native coronary artery without angina pectoris; J44.9 Chronic obstructive pulmonary disease, unspecified; G40.909 Epilepsy, unspecified, not intractable, without status epilepticus; F17.200 Nicotine dependence, unspecified, uncomplicated; F10.10 Alcohol abuse, uncomplicated; E66.9 Obesity, unspecified; Z68.34 Body mass index [BMI] 34.0-34.9, adult
CPT/HCPCS: 97606

== ENCOUNTER → 2017-12-06 | Outpatient (CLI) | payer SELFPAY ==
[~2017-12-06] MED LIST changes: -LABE100T PO; +LABE100T5 PO
[2017-12-06 08:52] VITALS: BP 173/93
== END | disposition home or self-care (01) ==
LOC: WHH 08:00
PROVIDERS: ATTEND Surgery
DX: E11.622 Type 2 diabetes mellitus with other skin ulcer (principal); L97.821 Non-pressure chronic ulcer of other part of left lower leg limited to breakdown of skin; I83.028 Varicose veins of left lower extremity with ulcer other part of lower leg; E11.22 Type 2 diabetes mellitus with diabetic chronic kidney disease; I13.2 Hypertensive heart and chronic kidney disease with heart failure and with stage 5 chronic kidney disease, or end stage renal disease; N18.6 End stage renal disease; I50.9 Heart failure, unspecified; E11.51 Type 2 diabetes mellitus with diabetic peripheral angiopathy without gangrene; I25.10 Atherosclerotic heart disease of native coronary artery without angina pectoris; J44.9 Chronic obstructive pulmonary disease, unspecified; G40.909 Epilepsy, unspecified, not intractable, without status epilepticus; F17.200 Nicotine dependence, unspecified, uncomplicated; F10.10 Alcohol abuse, uncomplicated; E66.9 Obesity, unspecified; Z68.34 Body mass index [BMI] 34.0-34.9, adult
CPT/HCPCS: 97605; A6452

== ENCOUNTER → 2017-12-09 | Outpatient (CLI) | payer SELFPAY ==
[~2017-12-09] MED LIST changes: +LIDOCAINE HCL 4% LTA SOL 4 ML VIAL TP ONE
[2017-12-09 13:32] VITALS: BP 138/79
== END | disposition home or self-care (01) ==
LOC: WHH 09:00
PROVIDERS: ATTEND Surgery
DX: E11.622 Type 2 diabetes mellitus with other skin ulcer (principal); L97.821 Non-pressure chronic ulcer of other part of left lower leg limited to breakdown of skin; I83.028 Varicose veins of left lower extremity with ulcer other part of lower leg; E11.22 Type 2 diabetes mellitus with diabetic chronic kidney disease; I13.2 Hypertensive heart and chronic kidney disease with heart failure and with stage 5 chronic kidney disease, or end stage renal disease; N18.6 End stage renal disease; I50.9 Heart failure, unspecified; E11.51 Type 2 diabetes mellitus with diabetic peripheral angiopathy without gangrene; I25.10 Atherosclerotic heart disease of native coronary artery without angina pectoris; J44.9 Chronic obstructive pulmonary disease, unspecified; G40.909 Epilepsy, unspecified, not intractable, without status epilepticus; F17.200 Nicotine dependence, unspecified, uncomplicated; F10.10 Alcohol abuse, uncomplicated; E66.9 Obesity, unspecified; Z68.34 Body mass index [BMI] 34.0-34.9, adult
CPT/HCPCS: 11042; 11045; 97606; A6452

== ENCOUNTER → 2018-02-10 | Outpatient (CLI) | payer SELFPAY ==
[~2018-02-10] MED LIST changes: -LIDOCAINE HCL 4% LTA SOL 4 ML VIAL TP ONE
[2018-02-10 11:42] VITALS: BP 195/108
== END | disposition home or self-care (01) ==
LOC: WHH 09:45
PROVIDERS: ATTEND Surgery
DX: I83.028 Varicose veins of left lower extremity with ulcer other part of lower leg (principal); E11.622 Type 2 diabetes mellitus with other skin ulcer; L97.821 Non-pressure chronic ulcer of other part of left lower leg limited to breakdown of skin; E11.22 Type 2 diabetes mellitus with diabetic chronic kidney disease; I13.2 Hypertensive heart and chronic kidney disease with heart failure and with stage 5 chronic kidney disease, or end stage renal disease; N18.6 End stage renal disease; I50.9 Heart failure, unspecified; E11.51 Type 2 diabetes mellitus with diabetic peripheral angiopathy without gangrene; I25.10 Atherosclerotic heart disease of native coronary artery without angina pectoris; J44.9 Chronic obstructive pulmonary disease, unspecified; G40.909 Epilepsy, unspecified, not intractable, without status epilepticus; E66.9 Obesity, unspecified; K74.60 Unspecified cirrhosis of liver; F17.210 Nicotine dependence, cigarettes, uncomplicated; F10.10 Alcohol abuse, uncomplicated; Z68.34 Body mass index [BMI] 34.0-34.9, adult; Z99.2 Dependence on renal dialysis; Z79.4 Long term (current) use of insulin
CPT/HCPCS: 99211; A6021; A6452

== ENCOUNTER → 2018-02-17 | Outpatient (CLI) | payer SELFPAY ==
[2018-02-17 13:58] VITALS: BP 205/106
== END | disposition home or self-care (01) ==
LOC: WHH 09:45
PROVIDERS: ATTEND Surgery
DX: I83.028 Varicose veins of left lower extremity with ulcer other part of lower leg (principal); E11.622 Type 2 diabetes mellitus with other skin ulcer; L97.221 Non-pressure chronic ulcer of left calf limited to breakdown of skin; E11.22 Type 2 diabetes mellitus with diabetic chronic kidney disease; I13.2 Hypertensive heart and chronic kidney disease with heart failure and with stage 5 chronic kidney disease, or end stage renal disease; N18.6 End stage renal disease; I50.9 Heart failure, unspecified; E11.51 Type 2 diabetes mellitus with diabetic peripheral angiopathy without gangrene; I25.10 Atherosclerotic heart disease of native coronary artery without angina pectoris; J44.9 Chronic obstructive pulmonary disease, unspecified; G40.909 Epilepsy, unspecified, not intractable, without status epilepticus; E66.9 Obesity, unspecified; K74.60 Unspecified cirrhosis of liver; F17.210 Nicotine dependence, cigarettes, uncomplicated; F10.10 Alcohol abuse, uncomplicated; Z68.34 Body mass index [BMI] 34.0-34.9, adult; Z99.2 Dependence on renal dialysis; Z79.4 Long term (current) use of insulin
CPT/HCPCS: 99214; A6021; A6452

== ENCOUNTER → 2018-02-24 | Outpatient (CLI) | payer SELFPAY ==
[2018-02-24 13:07] VITALS: BP 193/104
== END | disposition home or self-care (01) ==
LOC: WHH 09:50
PROVIDERS: ATTEND Surgery
DX: I83.028 Varicose veins of left lower extremity with ulcer other part of lower leg (principal); E11.622 Type 2 diabetes mellitus with other skin ulcer; L97.221 Non-pressure chronic ulcer of left calf limited to breakdown of skin; E11.22 Type 2 diabetes mellitus with diabetic chronic kidney disease; I13.2 Hypertensive heart and chronic kidney disease with heart failure and with stage 5 chronic kidney disease, or end stage renal disease; N18.6 End stage renal disease; I50.9 Heart failure, unspecified; E11.51 Type 2 diabetes mellitus with diabetic peripheral angiopathy without gangrene; I25.10 Atherosclerotic heart disease of native coronary artery without angina pectoris; J44.9 Chronic obstructive pulmonary disease, unspecified; G40.909 Epilepsy, unspecified, not intractable, without status epilepticus; E66.9 Obesity, unspecified; K74.60 Unspecified cirrhosis of liver; F17.210 Nicotine dependence, cigarettes, uncomplicated; F10.10 Alcohol abuse, uncomplicated; Z68.34 Body mass index [BMI] 34.0-34.9, adult; Z99.2 Dependence on renal dialysis; Z79.4 Long term (current) use of insulin
CPT/HCPCS: 99214; A6021; A6452

== ENCOUNTER → 2018-03-03 | Outpatient (CLI) | payer SELFPAY ==
[2018-03-03 10:28] VITALS: BP 219/109
== END | disposition home or self-care (01) ==
LOC: WHH 09:30
PROVIDERS: ATTEND Surgery
DX: I83.028 Varicose veins of left lower extremity with ulcer other part of lower leg (principal); E11.622 Type 2 diabetes mellitus with other skin ulcer; L97.821 Non-pressure chronic ulcer of other part of left lower leg limited to breakdown of skin; E11.22 Type 2 diabetes mellitus with diabetic chronic kidney disease; I13.2 Hypertensive heart and chronic kidney disease with heart failure and with stage 5 chronic kidney disease, or end stage renal disease; N18.6 End stage renal disease; I50.9 Heart failure, unspecified; E11.51 Type 2 diabetes mellitus with diabetic peripheral angiopathy without gangrene; I25.10 Atherosclerotic heart disease of native coronary artery without angina pectoris; J44.9 Chronic obstructive pulmonary disease, unspecified; G40.909 Epilepsy, unspecified, not intractable, without status epilepticus; E66.9 Obesity, unspecified; K74.60 Unspecified cirrhosis of liver; F17.210 Nicotine dependence, cigarettes, uncomplicated; F10.10 Alcohol abuse, uncomplicated; Z68.34 Body mass index [BMI] 34.0-34.9, adult; Z99.2 Dependence on renal dialysis; Z79.4 Long term (current) use of insulin
CPT/HCPCS: 99211; A6021; A6452

== ENCOUNTER → 2018-03-10 | Outpatient (CLI) | payer SELFPAY ==
[2018-03-10 14:58] VITALS: BP 182/103
== END | disposition home or self-care (01) ==
LOC: WHH 09:30
PROVIDERS: ATTEND Surgery
DX: I83.028 Varicose veins of left lower extremity with ulcer other part of lower leg (principal); E11.622 Type 2 diabetes mellitus with other skin ulcer; L97.821 Non-pressure chronic ulcer of other part of left lower leg limited to breakdown of skin; E11.22 Type 2 diabetes mellitus with diabetic chronic kidney disease; I13.2 Hypertensive heart and chronic kidney disease with heart failure and with stage 5 chronic kidney disease, or end stage renal disease; N18.6 End stage renal disease; I50.9 Heart failure, unspecified; E11.51 Type 2 diabetes mellitus with diabetic peripheral angiopathy without gangrene; I25.10 Atherosclerotic heart disease of native coronary artery without angina pectoris; J44.9 Chronic obstructive pulmonary disease, unspecified; G40.909 Epilepsy, unspecified, not intractable, without status epilepticus; E66.9 Obesity, unspecified; K74.60 Unspecified cirrhosis of liver; F17.210 Nicotine dependence, cigarettes, uncomplicated; F10.10 Alcohol abuse, uncomplicated; Z68.34 Body mass index [BMI] 34.0-34.9, adult; Z99.2 Dependence on renal dialysis; Z79.4 Long term (current) use of insulin
CPT/HCPCS: 99214; A6021; A6452

== ENCOUNTER 2019-08-11 17:12 | Inpatient (IN) | payer OTHER ==
[~2019-08-11] VITALS: Ht 177.8 cm; Wt 135.7 kg
[~2019-08-11 17:12] MED LIST changes: +ATROPINE SULFATE 0.1 MG/ML 10 ML SYG IVP ONE; +CALCIUM CHLORIDE 100 MG/ML 10 ML SYG IVP ONE; +EPINEPHRINE 0.1 MG/ML 10 ML SYG IVP ONE; +SODIUM BICARB 8.4% 50ML SYRINGE IVP ONE
[2019-08-11] MEDS ORDERED: IPRATROPIUM/ALBUTEROL SULFATE 3 ML SOLUTION IH ONE (17:23)
[2019-08-11] MEDS ORDERED: NITROGLYCERIN 50 MG/D5% WATER 1 BOT ONE (17:25)
[2019-08-11] MEDS ORDERED: FUROSEMIDE 10 MG/ML 4ML VIAL ONE ×2 (17:26→23:43)
[2019-08-11] MEDS ORDERED: ASPIRIN 325 MG TABLET ONE (17:26)
[2019-08-11] MEDS ORDERED: ONDANSETRON HCL 4 MG/2 ML VIAL ONE ×2 (17:30→18:24)
[2019-08-11 17:43] LABS: BASOPHILS % (AUTO) 0.4 % (0.0-5.0); EOSINOPHILS % (AUTO) 0.3 % (0.0-8.0); HEMATOCRIT 36.4 % (42-54); MEAN CORPUSCULAR HGB CONC 30.2 g/dL (32.0-36.0); MONOCYTES % (AUTO) 7.6 % (3.0-13.0); NEUTROPHILS % (AUTO) 81.9 % (40.0-77.0); PLATELET COUNT (AUTO) 140 K/uL (130-400); RED BLOOD CELL COUNT(AUTO) 3.79 MIL/uL (4.50-6.20); RED CELL DISTRIBUTION WIDTH 13.9 % (11.0-15.5); WHITE BLOOD COUNT (AUTO) 10.7 K/uL (4.8-10.8)
[2019-08-11 17:43] LABS: ABG BASE EXCESS -11.1 mmol/L (-2.0-3.0); ABG HCO3 18.9 mmol/L (21.0-28.0); ABG OXYGEN SATURATION 94.7 % (95.0-99.0); ABG PCO2 59 mmHg (35-48)
[2019-08-11 17:57] LABS: CARBON DIOXIDE 26 mmol/L (21-32); CHLORIDE 105 mmol/L (101-111); CREATININE 3.6 mg/dL (0.5-1.5); GLOMERULAR FILTR. RATE CALC 18 mL/min (>60); GLUCOSE,RANDOM 161 mg/dL (70-105); INR 1.04 (0.85-1.15); PARTIAL THROMBOPLASTIN TIME 30.5 SEC (26.3-35.5); POTASSIUM 4.5 mmol/L (3.5-5.1); PROTHROMBIN TIME 11.2 SEC (9.6-11.6); SODIUM SERUM 140 mmol/L (136-145); UREA NITROGEN, BLOOD 39 mg/dL (7-18)
[2019-08-11 18:12] LABS: ALANINE AMINOTRANSFERASE 26 U/L (12-78); ALBUMIN 2.4 g/dL (3.5-5.0); ASPARTATE AMINOTRANSFERASE 34 U/L (10-37); BILIRUBIN,TOTAL 0.5 mg/dL (0.2-1.0); MYOGLOBIN 920 ng/mL (10-92); TOTAL PROTEIN, SERUM 7.1 g/dL (6.0-8.3); TROPONIN I < 0.04 ng/mL (0.00-0.06)
[2019-08-11 18:42] LABS: CREATINE KINASE, TOTAL 620 U/L (21-232)
[2019-08-11] MEDS ORDERED: INSULIN R PO SS1 SQ SCH (21:00)
[2019-08-11 21:30] VITALS: BP 158/101
[2019-08-11] MEDS ORDERED: GLUCAGON 1MG KIT 1 MG ML IM PRN (21:45)
[2019-08-11] MEDS ORDERED: LABETALOL 20 MG/4 ML DISP.SYRIN IV PRN (22:00)
[2019-08-11 23:48] VITALS: BP 159/112
[2019-08-12] VITALS (20 sets, daily range): BP systolic 90–149; BP diastolic 33–79
[2019-08-12] MEDS: SODIUM BICARB 50MEQ 50ML VIAL IV SCH ×6 (02:00→23:09)
[2019-08-12 05:31] LABS: BASOPHILS % (AUTO) 0.2 % (0.0-5.0); HEMATOCRIT 32.3 % (42-54); LYMPHOCYTES % (AUTO) 2.6 % (21.0-51.0); MEAN CORPUSCULAR HEMOGLOBIN 28.8 pg (27.0-33.0); MEAN CORPUSCULAR HGB CONC 29.4 g/dL (32.0-36.0); MEAN CORPUSCULAR VOLUME 97.9 fL (79-99); MONOCYTES % (AUTO) 8.1 % (3.0-13.0); NEUTROPHILS % (AUTO) 88.3 % (40.0-77.0); PLATELET COUNT (AUTO) 121 K/uL (130-400); RED CELL DISTRIBUTION WIDTH 13.9 % (11.0-15.5); WHITE BLOOD COUNT (AUTO) 21.3 K/uL (4.8-10.8)
[2019-08-12 05:58] LABS: ALBUMIN 1.9 g/dL (3.5-5.0); BILIRUBIN,TOTAL 0.6 mg/dL (0.2-1.0); CREATININE 3.9 mg/dL (0.5-1.5); POTASSIUM 4.2 mmol/L (3.5-5.1); TOTAL PROTEIN, SERUM 6.3 g/dL (6.0-8.3)
[2019-08-12] MEDS ORDERED: VANCOMYCIN PROTOCOL PER PHARMACY IV SCH ×2 (06:45→13:30)
[2019-08-12] MEDS ORDERED: CEFTRIAXONE SODIUM 1 GM IVP SCH (06:45)
[2019-08-12] MEDS: INSULIN HUMULIN R 100 UNIT/ML 3ML SQ SCH ×5 (06:46→21:29)
[2019-08-12] MEDS ORDERED: VANCOMYCIN 1.5 GM in SODIUM CHLORIDE 0.9% 250 ML IV SCH ×2 (07:00→14:00)
[2019-08-12] MEDS ORDERED: COMPOUND IV REFRIGERATED 1 EACH IVSOLN MISC PRN (07:00)
[2019-08-12] MEDS ORDERED: ACETAMINOPHEN 325 MG TAB PO PRN (08:00)
[2019-08-12] MEDS ORDERED: HYDROMORPHONE 1 MG/1 ML AMP IVP PRN (08:00)
[2019-08-12] MEDS ORDERED: LABETALOL HCL 100 MG TABLET PO SCH (09:00)
[2019-08-12] MEDS ORDERED: METOLAZONE 2.5 MG TABLET PO SCH (09:00)
[2019-08-12] MEDS ORDERED: FUROSEMIDE 40 MG TABLET PO SCH (09:00)
[2019-08-12] MEDS: GLIPIZIDE 5 MG TABLET PO SCH (09:00)
[2019-08-12] MEDS: FUROSEMIDE 10 MG/ML 10ML VIAL IVP SCH ×2 (09:01→21:22)
--- NOTE | 2019-08-12 11:12 | NUR ---
Notified Dr. Mccormack of consult. Dr. Mccormack to see today.
--- NOTE | 2019-08-12 13:19 | NUR ---
Patient in respiratory distress, currently on Venti mask at 40%, noted lethargy and shortness of breath, rhonchi and diminished breath sounds to lower lobes. Arouseable to voice, but very drowsy. 88% O2 Sa. RT paged to place on BIPAP. Evaluated by Dr. Mccormack, reported current labs and history of previous dialysis, but not on dialysis for 3 years. Received verbal orders for PICC line placement, IV thiamine 100 mg daily, vancomycin protocol, Nephrovite PO daily, hold labetolol until further notice, strict I/O, daily weight, CBC, CMP, Phosphorus, TSH Magnesium and uric acid in the AM and initiate telemetry monitoring. Per Dr. Mccormack, no dialysis at this time.
--- NOTE | 2019-08-12 13:50 | NUR ---
ADVANCE DIRECTIVES REQUESTED BY DR. VALDEZ. CALL TO FAMILY , NO LONGER AT BEDSIDE, STATES SHE WOULD RETURN CHART REVIEWED, NOTED PH 7.12, NOTE SOB, NOTED EDEMA, RESP DISTRESS DR. VALDEZ REQUESTING DIRECTION OF CARE CLARIFICATION; ATTEMPTED TO REACH DR. PETE, NO ANSWER, CALL TO [facility], ORDER FOR TRANSFER RECD, PENDING FAMILY TO COME TO BEDSIDE TO CLARIFY CODE STATUS
--- NOTE | 2019-08-12 13:52 | NUR ---
CALL TO SPOUSE- ASKED IF SHE WANT AGGRESSIVE CARE, VENTILATOR, ETC; AT FIRST SPOUSE STATED 'NO!" THEN SAID, WHY IS HE WORSE? EXPALINED THAT PATIENT NEEDS SURVEILLNECE AND TREATMENT OF CONDITION, BUT IF COMFORT CARE WAS WANTED WE WOUDL MALDONADO ORER CERTAIN TESTS AND INTERVENTIONS STATES SHE WOULD TELL CM WHEN SHE GOT TO HOSPITAL, NOT YET! ONE HER WAY! ADVISED PRIMARY RN
--- NOTE | 2019-08-12 14:00 | NUR ---
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 Extremities, abdomen and bladder distended, pitting edema 4+ to lower extremities, 3+ to upper extremities noted. Attempt to place bah catheter using sterile technique unsuccessful. Greenish yellow pus noted to urethral opening, malodorous. Site cleansed with betadine swabs. Patient placed on BIPAP, but shows symptoms of anxiety with pressured oxygen, attempts to remove mask. Instructed patient to leave mask in place to improve oxygenation. High-giles's, bed low, locked, call rogel within reach. Attempted to reach Dr. Gordillo to request transfer of care to higher acuity unit. Pending response.
--- NOTE | 2019-08-12 14:06 | NUR ---
SPOUSE AT BEDSIDE, STATES SHE WANTS EVERYTHING DONE, INCLUDING DIALYSIS IF NECESSARY, WANTS HIM TO BE A FULL CODE. PRIMARY RN SPEAKING TO PATIENT, PICC LINE CONSENT OBTAINED. ATTEMPTED AGAIN TO CONTACT DR. PETE. ORDER RECED FORM DR. VALDEZ TO TRANSFER TO PCCU IF FAMILY WANTS AGGRESSIVE MEASURES BECAUSE 'PT IS VERY SICK' . RN EXPLAINED TRANSFER TO FAMILY. HS NOTIFIED
--- NOTE | 2019-08-12 14:17 | NUR ---
JUAN R RETURNED TEXT, ASKING FOR ICU, RN, HS INFORMED
[2019-08-12] MEDS ORDERED: SODIUM CHLORIDE 0.9% IV SCH (15:00)
[2019-08-12] MEDS ORDERED: VANCOMYCIN IV SCH (15:00)
--- NOTE | 2019-08-12 15:00 | NUR ---
CM NOTE SPOEK TO SPOUSE AT PT BEING WHEELED TO ICU STATES LIVES WITH SPOUSE JEROME WHO PROVIDES MUCH ASSISTANCE- PT NEEDS HELPS DRESSING, BATHING, HAS WHEELCHAIR, COMMODE, WALKER; [facility] USED TO HAVE DR. PILLAI MD BUT HAD TO SWITCH BECAUSE OF THE INSURANCE BUT DOES NOT HAVE AN MD NOW OR DOES NOT WANT TO GO TO AN MD NOW, NOT FOR MANY MONTHS- DID NOT WANT OT COME TO THE HOSPITAL - [facility] WAS TOLD NEEDED OXYGEN BUT NEVER RECD, NEVER SENT FOR SLEEP STUDY SPOUSE AWARE PT IS VERY ILL. CM TO FOLLOW Addendum: 08/12/19 at 2001 by IVA STEPHENS RN CM Amended: Links added.
[2019-08-12 15:10] LABS: ABG BASE EXCESS -10.1 mmol/L (-2.0-3.0); ABG HCO3 20.7 mmol/L (21.0-28.0); ABG OXYGEN SATURATION 96.2 % (95.0-99.0); ABG PCO2 68 mmHg (35-48)
--- NOTE | 2019-08-12 15:10 | NUR ---
Provided report to Haile in ICU for transfer of care. Patient prepared for transfer with quality assurance monitor body.
--- NOTE | 2019-08-12 15:20 | NUR ---
Patient escorted via hospital bed on wire taper with Venti mask and oxygen to RM 218 ICU. RT Tam preparing BIPAP for receiving of patient. Spouse accompanied staff and patient to ICU.
[2019-08-12] MEDS ORDERED: DOPAMINE 800MG/D5 250ML 250 ML IV ONE (15:53)
[2019-08-12] MEDS ORDERED: SODIUM BICARB 50MEQ 50ML VIAL ONE (15:58)
[2019-08-12] MEDS ORDERED: SODIUM CHLORIDE 0.9% 500ML 500 ML IV ONE (16:18)
[2019-08-12] MEDS ORDERED: NALOXONE HCL 0.4 MG/1 ML ML ONE (16:38)
--- NOTE | 2019-08-12 16:53 | NUR ---
PT ASSESSED FOR PICC LINE PLACEMENT, BUT DR. MICHELE CALLED AT SAME TIME PT WAS TRANSFERRED FOR 4TH FLOOR TO ICU AND DID CENTRAL LINE EMERGENTLY INSTEAD.
[2019-08-12] MEDS ORDERED: SODIUM BICARB 50MEQ 50ML VIAL IV SCH (17:00)
[2019-08-12 17:29] LABS: ABG BASE EXCESS -9.2 mmol/L (-2.0-3.0); ABG HCO3 21.9 mmol/L (21.0-28.0); ABG OXYGEN SATURATION 81.1 % (95.0-99.0); ABG PCO2 72 mmHg (35-48)
[2019-08-12] MEDS: NALOXONE HCL 0.4 MG/1 ML ML IVP SCH (17:35)
[2019-08-12] MEDS: DOPAMINE 800MG/D5 250ML 250 ML IV PRN (17:36)
[2019-08-12] MEDS: MEROPENEM 1 GM VIAL IVP SCH (17:40)
[2019-08-12] MEDS: ENOXAPARIN SODIUM 30 MG/0.3 ML SQ SCH (17:41)
[2019-08-12] MEDS: LINEZOLID 600 MG/ISO-OSM 300 ML IV SCH (17:53)
[2019-08-12 18:16] LABS: BASOPHILS % (AUTO) 0.4 % (0.0-5.0); EOSINOPHILS % (AUTO) 0.2 % (0.0-8.0); HEMATOCRIT 35.1 % (42-54); LYMPHOCYTES % (AUTO) 4.8 % (21.0-51.0); MEAN CORPUSCULAR HEMOGLOBIN 28.4 pg (27.0-33.0); MEAN CORPUSCULAR HGB CONC 28.5 g/dL (32.0-36.0); MEAN CORPUSCULAR VOLUME 99.7 fL (79-99); MONOCYTES % (AUTO) 11.2 % (3.0-13.0); NEUTROPHILS % (AUTO) 83.1 % (40.0-77.0); PLATELET COUNT (AUTO) 148 K/uL (130-400); RED BLOOD CELL COUNT(AUTO) 3.52 MIL/uL (4.50-6.20); RED CELL DISTRIBUTION WIDTH 14.4 % (11.0-15.5); WHITE BLOOD COUNT (AUTO) 13.1 K/uL (4.8-10.8)
[2019-08-12 18:52] LABS: CREATININE 4.5 mg/dL (0.5-1.5); POTASSIUM 4.5 mmol/L (3.5-5.1); TROPONIN I 0.2 ng/mL (0.00-0.06)
[2019-08-12 19:48] LABS: ABG BASE EXCESS -7.4 mmol/L (-2.0-3.0); ABG HCO3 22.5 mmol/L (21.0-28.0); ABG OXYGEN SATURATION 91.5 % (95.0-99.0); ABG PCO2 65 mmHg (35-48)
--- NOTE | 2019-08-12 20:10 | NUR ---
MD VISIT DR JACKSON HERE AND PLACED 16F FC. PLACED TO BSD WITH RETURN SMALL AMOUNT DARK PATRICK URINE.
--- NOTE | 2019-08-12 20:30 | NUR ---
SPECIALTY TRIMMER CALL ABG RESULTS BACK AND CHRISTIN BAR NP BEEPED.
[2019-08-12 22:16] LABS: ABG BASE EXCESS -5.1 mmol/L (-2.0-3.0); ABG HCO3 24.4 mmol/L (21.0-28.0); ABG OXYGEN SATURATION 92.2 % (95.0-99.0); ABG PCO2 65 mmHg (35-48)
[2019-08-13] VITALS (74 sets, daily range): BP systolic 91–185; BP diastolic 32–117
[2019-08-13] MEDS: SODIUM BICARB 50MEQ 50ML VIAL IV SCH ×2 (00:10→01:13)
[2019-08-13 03:33] LABS: HEMATOCRIT 31.7 % (42-54); MEAN CORPUSCULAR HGB CONC 29.7 g/dL (32.0-36.0); MEAN CORPUSCULAR VOLUME 97.8 fL (79-99); NUCLEATED RED BLOOD CELLS 0.2 % (0.0-0.19); PLATELET COUNT (AUTO) 114 K/uL (130-400); RED BLOOD CELL COUNT(AUTO) 3.24 MIL/uL (4.50-6.20); RED CELL DISTRIBUTION WIDTH 14.2 % (11.0-15.5); WHITE BLOOD COUNT (AUTO) 9.7 K/uL (4.8-10.8)
[2019-08-13 03:51] LABS: BAND NEUTROPHILS % (MANUAL) 6 % (0-2); BASOPHILS % (MANUAL) 1 % (0-2); LYMPHOCYTES % (MANUAL) 13 % (22-44); MAN.DIFF COMMENT-IMPRESSION MANUAL DIFFERENTIAL; MONOCYTES % (MANUAL) 12 % (2-9); PLATELET MORPHOLOGY COMMENT ADEQUATE; SEGMENTED NEUTROPHILS % 68 % (40-70)
[2019-08-13 03:55] LABS: ALBUMIN 1.8 g/dL (3.5-5.0); BILIRUBIN,TOTAL 0.5 mg/dL (0.2-1.0); CREATININE 4.8 mg/dL (0.5-1.5); MAGNESIUM 3.3 mg/dL (1.80-2.40); PHOSPHORUS 7.3 mg/dL (2.5-4.9); POTASSIUM 4.1 mmol/L (3.5-5.1); THYROID STIMULATING HORMONE 1.77 uIU/mL (0.36-3.74); TOTAL PROTEIN, SERUM 6.3 g/dL (6.0-8.3); URIC ACID 8.4 mg/dL (2.6-7.2)
[2019-08-13 03:57] LABS: ABG BASE EXCESS -4.4 mmol/L (-2.0-3.0); ABG HCO3 24.8 mmol/L (21.0-28.0); ABG OXYGEN SATURATION 93.2 % (95.0-99.0); ABG PCO2 63 mmHg (35-48)
[2019-08-13] MEDS: MEROPENEM 1 GM VIAL IVP SCH ×2 (05:23→16:25)
[2019-08-13] MEDS: ENOXAPARIN SODIUM 30 MG/0.3 ML SQ SCH ×2 (05:23→16:26)
[2019-08-13] MEDS: LINEZOLID 600 MG/ISO-OSM 300 ML IV SCH ×2 (05:24→17:31)
[2019-08-13] MEDS: INSULIN HUMULIN R 100 UNIT/ML 3ML SQ SCH ×6 (05:37→20:51)
[2019-08-13] MEDS: GLIPIZIDE 5 MG TABLET PO SCH (08:31)
[2019-08-13] MEDS: FOLIC ACID/VITAMIN B COMP W-C 1 CAP TAB PO SCH (08:31)
[2019-08-13] MEDS: FUROSEMIDE 10 MG/ML 10ML VIAL IVP SCH (08:34)
[2019-08-13] MEDS: PANTOPRAZOLE 40 MG/VIAL IVP SCH (08:34)
[2019-08-13 09:12] LABS: ABG BASE EXCESS -3.2 mmol/L (-2.0-3.0); ABG HCO3 26.7 mmol/L (21.0-28.0); ABG OXYGEN SATURATION 94.2 % (95.0-99.0); ABG PCO2 70 mmHg (35-48)
--- NOTE | 2019-08-13 09:15 | NUR ---
DR MICHELE NOTIFIED VIA PHONE REGARDING ABG RESULTS: PH 7.98, PCO2 70.1, PO2 87.2, HCO3 26.7, NEW ORDERS GIVEN FOR CXR
[2019-08-13 09:29] LABS: TROPONIN I 0.97 ng/mL (0.00-0.06)
[2019-08-13] MEDS: HYDRALAZINE HCL 20 MG/ML VIAL IV PRN (09:29)
--- NOTE | 2019-08-13 09:40 | NUR ---
DR CARDOSO NOTIFIED VIA PHONE ABOUT LATEST TROPONIN 0.97 AND CK 704
[2019-08-13] MEDS ORDERED: THIAMINE HCL 100 MG/ML 2ML VIAL IVP SCH (10:00)
--- NOTE | 2019-08-13 10:00 | NUR ---
DR CARDOSO AT BEDSIDE, NO NEW ORDERS GIVEN
[2019-08-13] MEDS: LACTATED RINGERS 1000ML 1,000 ML IV SCH (10:23)
--- NOTE | 2019-08-13 10:30 | NUR ---
SPOKE TO DR VALDEZ VIA PHONE REGARDING RECOMMENDATIONS GIVEN PER DR MICHELE FOR DIALYSIS TREATMENT FOR TODAY, MD STATED HE WILL AND ASSESS PATIENT THIS AM
--- NOTE | 2019-08-13 12:50 | NUR ---
DR VALDEZ AT BEDSIDE, MD EXPLAINED RISKS INVOLVED WITH DIALYSIS TO PT'S AT BEDSIDE AND TO PT'S FARIHA VIA PHONE, PT'S FAMILY AGREED TO HD TREATMENT.
--- NOTE | 2019-08-13 13:00 | NUR ---
SPOKE TO LOLA,RN NURSE MECHANICAL PROCESS ENGINEER FOR HD, MADE AWARE ABOUT ORDERED HD TREATMENT, PER DR VALDEZ
[2019-08-13] MEDS: DOPAMINE 800MG/D5 250ML 250 ML IV PRN (14:32)
[2019-08-13] MEDS ORDERED: ACETAMINOPHEN 325 MG TAB PO PRN (16:00)
[2019-08-13] MEDS ORDERED: SODIUM CHLORIDE 0.9% 1000ML 1,000 ML IV PRN (16:00)
[2019-08-13] MEDS ORDERED: 0.9% SODIUM CHLORIDE 1000 ML IV BAG IV PRN (16:00)
[2019-08-13] MEDS: NALOXONE HCL 0.4 MG/1 ML ML IVP SCH (17:00)
--- NOTE | 2019-08-13 17:45 | NUR ---
NOTED TO BE VERY CONFUSED AND COMBATIVE, TRYING TO PULL ON HD NEEDLES, REMOVED BIPAP MASK, ASSISTED PER HOLLAND TIM RN TO PREVENT PATIENT FROM PULLING HD LINES. SPOKE TO DR MICHELE VIA PHONE NEW ORDERS GIVEN. ORDERS CARRIED OUT, ORDERED PER
[2019-08-13] MEDS ORDERED: HALOPERIDOL LACTATE 5 MG/ML VIAL ONE (17:54)
[2019-08-13] MEDS ORDERED: HALOPERIDOL LACTATE 5 MG/ML VIAL IV SCH (18:00)
[2019-08-13] MEDS ORDERED: LORAZEPAM 2 MG/ML 1 ML VIAL ONE (18:10)
[2019-08-13] MEDS ORDERED: LORAZEPAM 2 MG/ML 1 ML VIAL IVP ONE (18:15)
--- NOTE | 2019-08-13 18:20 | NUR ---
NOTED TO BE CALM AT THIS TIME AFTER DOSES OF HALDOL AND ATIVAN GIVEN, BIPAP MASK BACK IN PLACE, EYES CLOSED, UNLABORED RESPIRATIONS NOTED, 02 SAT AT 98%, HD COMPLETED, TOTAL OF 2.[address] MICHELE CALLED AND UPDATED ON PT'S STATUS, NO FURTHER ORDERS GIVEN AT THIS TIME.
[2019-08-13] MEDS ORDERED: CHLORDIAZEPOXIDE HCL 25 MG CAP MODERATE PO PRN (20:15)
[2019-08-13] MEDS ORDERED: CHLORDIAZEPOXIDE 50MG SEVERE PO PRN (20:15)
[2019-08-13] MEDS ORDERED: LORAZEPAM 4 MG SEVERE IVP PRN ×2 (20:15)
[2019-08-13] MEDS: LACTULOSE 20 GM/30 ML UDCUP PO SCH (21:00)
[2019-08-13] MEDS: THIAMINE HCL 100 MG/ML 2ML VIAL IVP SCH (21:25)
[2019-08-13] MEDS: LORAZEPAM 2 MG MODERATE IVP PRN (23:38)
--- NOTE | 2019-08-13 23:46 | NUR ---
AGITATION PULLS OFF MASK DESPITE MITTENS IN PLACE. REORIENTED BY NURSE. AT BEDSIDE AND TALKS TO HIM. STATES HE NEEDS TO GET UP. RT AT BEDSIDE AND ATTEMPTS TO PLACE MASK BACK ON BUT NOT ABLE TO DUE TO PT ATTEMPTING TO HIT HIM. ATTEMPTED TO GIVEN LIBRIUM PER ORDER BUT SPITS IT OUT AT NURSE. MEDICATED PER [facility] FLOW SHEET FOR AGITATION. MASK PLACED BACK ON HIM AFTER HE CALMS DOWN. BILATERAL MITTENS REMAIN IN PLACE. VSS.
[2019-08-14] VITALS (35 sets, daily range): BP systolic 106–235; BP diastolic 44–98
[2019-08-14] MEDS: LORAZEPAM 2 MG MODERATE IVP PRN ×2 (03:16→07:49)
[2019-08-14 04:01] LABS: HEMATOCRIT 30.4 % (42-54); MEAN CORPUSCULAR HEMOGLOBIN 28.4 pg (27.0-33.0); MEAN CORPUSCULAR HGB CONC 28.9 g/dL (32.0-36.0); MEAN CORPUSCULAR VOLUME 98.1 fL (79-99); PLATELET COUNT (AUTO) 107 K/uL (130-400); RED CELL DISTRIBUTION WIDTH 14.2 % (11.0-15.5); WHITE BLOOD COUNT (AUTO) 10.2 K/uL (4.8-10.8)
[2019-08-14 04:35] LABS: ALBUMIN 1.8 g/dL (3.5-5.0); BILIRUBIN,TOTAL 0.5 mg/dL (0.2-1.0); CREATININE 4.5 mg/dL (0.5-1.5); POTASSIUM 3.9 mmol/L (3.5-5.1)
[2019-08-14] MEDS: LINEZOLID 600 MG/ISO-OSM 300 ML IV SCH ×2 (06:01→18:34)
[2019-08-14] MEDS: MEROPENEM 1 GM VIAL IVP SCH ×2 (06:01→18:33)
[2019-08-14] MEDS: ENOXAPARIN SODIUM 30 MG/0.3 ML SQ SCH ×2 (06:01→17:00)
[2019-08-14] MEDS: LACTATED RINGERS 1000ML 1,000 ML IV SCH (06:01)
[2019-08-14] MEDS: INSULIN HUMULIN R 100 UNIT/ML 3ML SQ SCH ×4 (06:37→21:00)
[2019-08-14] MEDS: LACTULOSE 20 GM/30 ML UDCUP PO SCH ×2 (07:50→20:22)
[2019-08-14] MEDS: FOLIC ACID/VITAMIN B COMP W-C 1 CAP TAB PO SCH (07:50)
[2019-08-14] MEDS: GLIPIZIDE 5 MG TABLET PO SCH (07:51)
[2019-08-14] MEDS ORDERED: ASPIRIN 81MG TAB.CHEW PO SCH (09:00)
[2019-08-14] MEDS: PANTOPRAZOLE 40 MG/VIAL IVP SCH (10:03)
[2019-08-14] MEDS: THIAMINE HCL 100 MG/ML 2ML VIAL IVP SCH ×2 (10:04→20:22)
--- NOTE | 2019-08-14 10:25 | NUR ---
PT WAS RESTLESS AND AT BEDSIDE AND WAS ADVISED THAT PT WOULD BE GIVEN SOME ATIVAN FOR RESTLESSNESS. PT'S HEART RATE IS DOWN TO 40'S AND RESPIRATORY EFFORT HAS BEEN NOTED TO BE DECREASED AND HAVING MINIMAL RESPIRATORY EFFORT AND UNABLE TO PALPATE PULSE AND CODE WAS CALLED. ROHITH COREA RN AND DANI LEBLANC RT HAD BEEN CALLED TO HELP WITH THE ASSESSMENT OF PT'S RESP EFFORT AND HEART RATE.
[2019-08-14] MEDS: EPINEPHRINE 10 MG in SODIUM CHLORIDE 0.9% 250 ML IV SCH (10:45)
[2019-08-14] MEDS ORDERED: SODIUM CHLORIDE 0.9% 500ML 500 ML IV ONE (10:46)
[2019-08-14 10:50] LABS: ABG OXYGEN SATURATION 44.5 % (95.0-99.0); BASE EXCESS,VENOUS BLOOD GAS -1.2 (-2.0-3.0); PCO2,VENOUS BLOOD GAS 64 (35-48); PH,VENOUS BLOOD GAS 7.244 (7.350-7.450)
--- NOTE | 2019-08-14 11:00 | NUR ---
PT HAS BEEN CODED AND DR. MICHELE WAS HERE TO ASSESS PATIENT AND TALK TO FAMILY MEMBER WHICH IS AND DAUGHTER FROM [place] IS ON HER WAY. CONSULT FOR ENT ORDERED AND DR. LUJAN HAS SPOKEN WITH DR. CLARK AND DR. MICHELE HAS BEEN INFORMED.
--- NOTE | 2019-08-14 11:10 | NUR ---
JANICE Lunsford present when janice simpson called. SW stayed with pt's during code. states she and pt have been together since 2009 and 2 years ago. Pt has 4 kids, 3 daughters and a son who all [place]. 2 daughters are dialysis nurses and 1 is a POLICE MANAGER. states her relationship with the kids is strained and although she keeps them informed of what is happening with pt, is the decision maker. states she and pt never discussed his wishes or code status in event of cardiac arrest. Pt has no directives in place. tried reaching pt's kids and brother to inform of code but no one answered. Sw stayed with until she was able to reach kids and was allowed back into room to be with pt. At 's request, Sw called daughter Kaur Desai who is an POLICE MANAGER so Dr Tovar could explain what happened and plan of care. Daughter agreeable to plan of care and and daughter agreeable to trach as recommended by .
[2019-08-14 11:15] LABS: ABG BASE EXCESS -3.8 mmol/L (-2.0-3.0); ABG HCO3 25.8 mmol/L (21.0-28.0); ABG OXYGEN SATURATION 97.6 % (95.0-99.0); ABG PCO2 73 mmHg (35-48)
[2019-08-14] MEDS ORDERED: VASOPRESSIN 40 UNITS in SODIUM CHLORIDE 0.9% 40 ML IV PRN (11:30)
[2019-08-14 11:35] LABS: HEMATOCRIT 35.4 % (42-54); MEAN CORPUSCULAR HEMOGLOBIN 28.7 pg (27.0-33.0); MEAN CORPUSCULAR HGB CONC 29.1 g/dL (32.0-36.0); MEAN CORPUSCULAR VOLUME 98.6 fL (79-99); NUCLEATED RED BLOOD CELLS 0.2 % (0.0-0.19); PLATELET COUNT (AUTO) 120 K/uL (130-400); RED BLOOD CELL COUNT(AUTO) 3.59 MIL/uL (4.50-6.20); RED CELL DISTRIBUTION WIDTH 14.3 % (11.0-15.5); WHITE BLOOD COUNT (AUTO) 13.1 K/uL (4.8-10.8)
[2019-08-14 11:36] LABS: CREATININE 4.8 mg/dL (0.5-1.5); POTASSIUM 4.2 mmol/L (3.5-5.1)
[2019-08-14 11:41] LABS: ALBUMIN 2.1 g/dL (3.5-5.0); BILIRUBIN,TOTAL 0.6 mg/dL (0.2-1.0); TOTAL PROTEIN, SERUM 6.8 g/dL (6.0-8.3)
[2019-08-14] MEDS ORDERED: FENTANYL CITRATE PF 0.05 MG/ML 1,000 MCG in SODIUM CHLORIDE 0.9% 100 ML IVPB PRN ×2 (11:45→12:00)
[2019-08-14] MEDS ORDERED: FENTANYL 1000MCG+NS 100ML 100 ML ONE (11:45)
[2019-08-14 14:38] LABS: ABG BASE EXCESS -3.3 mmol/L (-2.0-3.0); ABG HCO3 23.9 mmol/L (21.0-28.0); ABG OXYGEN SATURATION 99.1 % (95.0-99.0); ABG PCO2 52 mmHg (35-48)
--- NOTE | 2019-08-14 15:53 | NUR ---
f/u Sw recd call from , requesting f/u visit. states that daughter from [place] is on her way to see pt. Dr Pedraza was rounding and informed of pt's critical condition and need for trach. Procedure is scheduled for tomorrow at 7:30am. voiced concerns that step kids would blame her if pt did not make it. Dr Pedraza informed that we are doing everything possible for pt and that pt is very high risk for procedure, but procedure has to be done. Sw provided emotional support
--- NOTE | 2019-08-14 16:00 | NUR ---
DR. LUJAN HERE AND SPOKE WITH AND ADVISED THAT PT WILL NEED A TRACH IN ORDER TO HELP WITH HIS RESPIRATORY EFFORT. THE TRACHEOSTOMY IS SCHEDULED FOR 1300 08/15/19.
[2019-08-14] MEDS: NALOXONE HCL 0.4 MG/1 ML ML IVP SCH (17:00)
--- NOTE | 2019-08-14 17:15 | NUR ---
DAUGHTER FROM [place] IS HERE AND WAS GIVEN UPDATE AFTER ADVISED NURSING STAFF COULD BE GIVEN INFORMATION ON THE PATIENT.
[2019-08-14] MEDS: CISATRACURIUM BESYLATE 100 MG in SODIUM CHLORIDE 0.9% 100 ML IV SCH (19:20)
[2019-08-14] MEDS: MIDAZOLAM 50MG-0.9% NS 50ML 50 ML BAG IV SCH (20:21)
[2019-08-14] MEDS ORDERED: FENTANYL CITRATE PF 0.05 MG/ML 1,000 MCG in SODIUM CHLORIDE 0.9% 100 ML IVPB SCH (22:15)
--- NOTE | 2019-08-14 22:20 | NUR ---
NEW ORDERS FROM DR MICHELE. OGT INSERTED WITH NO RESISTANCE PLACEMENT CONFIRMED BY AIR BOLUS, EPI TURNED OFF. FENTANYL BOLUS 10 ML GIVEN AND DRIP INCREASED TO 15 ML/HR.
[2019-08-14] MEDS: HYDRALAZINE HCL 20 MG/ML VIAL IV PRN (22:31)
--- NOTE | 2019-08-14 22:31 | NUR ---
BP 201/72-APRELOSINE GIVEN SEE EMAR.
[2019-08-15] VITALS (69 sets, daily range): BP systolic 83–188; BP diastolic 38–79
--- NOTE | 2019-08-15 01:10 | NUR ---
COMPLETE BATH GIVEN LINENS CHANGED. TEMP 94.4 AXILLARY, WARMING BLANKET APPLIED.
[2019-08-15] MEDS: LACTATED RINGERS 1000ML 1,000 ML IV SCH ×2 (01:25→22:15)
--- NOTE | 2019-08-15 02:15 | NUR ---
TEMP 96 AXILLARY
[2019-08-15] MEDS ORDERED: FENTANYL 1000MCG+NS 100ML 100 ML ONE ×3 (02:34→23:23)
[2019-08-15] MEDS: CISATRACURIUM BESYLATE 100 MG in SODIUM CHLORIDE 0.9% 100 ML IV SCH ×3 (03:46→22:19)
[2019-08-15] MEDS: MEROPENEM 1 GM VIAL IVP SCH (04:34)
[2019-08-15] MEDS: ENOXAPARIN SODIUM 30 MG/0.3 ML SQ SCH ×2 (04:52→17:00)
[2019-08-15 05:17] LABS: ABG BASE EXCESS 2.4 mmol/L (-2.0-3.0); ABG HCO3 24.1 mmol/L (21.0-28.0); ABG OXYGEN SATURATION 98.9 % (95.0-99.0); ABG PCO2 30 mmHg (35-48)
[2019-08-15] MEDS: LINEZOLID 600 MG/ISO-OSM 300 ML IV SCH (05:27)
[2019-08-15 05:40] LABS: HEMATOCRIT 25.4 % (42-54); MEAN CORPUSCULAR HEMOGLOBIN 28.8 pg (27.0-33.0); MEAN CORPUSCULAR HGB CONC 31.9 g/dL (32.0-36.0); MEAN CORPUSCULAR VOLUME 90.4 fL (79-99); PLATELET COUNT (AUTO) 104 K/uL (130-400); RED BLOOD CELL COUNT(AUTO) 2.81 MIL/uL (4.50-6.20)
[2019-08-15] MEDS: INSULIN HUMULIN R 100 UNIT/ML 3ML SQ SCH ×4 (05:42→22:50)
[2019-08-15 06:50] LABS: INR 1.17 (0.85-1.15); PARTIAL THROMBOPLASTIN TIME 38.9 SEC (26.3-35.5); PROTHROMBIN TIME 12.6 SEC (9.6-11.6)
[2019-08-15 07:08] LABS: ALBUMIN 1.5 g/dL (3.5-5.0); BILIRUBIN,TOTAL 0.5 mg/dL (0.2-1.0); CREATININE 5.4 mg/dL (0.5-1.5); POTASSIUM 3.5 mmol/L (3.5-5.1); TOTAL PROTEIN, SERUM 5.1 g/dL (6.0-8.3)
[2019-08-15 07:11] LABS: BAND NEUTROPHILS % (MANUAL) 2 % (0-2); EOSINOPHILS % (MANUAL) 2 % (1-6); LYMPHOCYTES % (MANUAL) 8 % (22-44); MAN.DIFF COMMENT-IMPRESSION MANUAL DIFFERENTIAL; MONOCYTES % (MANUAL) 14 % (2-9); PLATELET MORPHOLOGY COMMENT SLIGHTLY DECREASED; SEGMENTED NEUTROPHILS % 74 % (40-70)
[2019-08-15 07:13] LABS: HEPATITIS Bs ANTIGEN SCREEN P Negative (Negative)
--- NOTE | 2019-08-15 08:20 | NUR ---
PT WAS SEEN BY DR. FREITAS AND ADVISED NURSING STAFF THAT HE (PT) WAS NOT HIS PATIENT AND WOULD RATHER HOSPITALISTS TOOK OVER CARE. NOTIFIED CHARGE NURSE SADIE ACEVES RN.
--- NOTE | 2019-08-15 08:45 | NUR ---
DR. PETE'S OFFICE CALLED AND SPOKE WITH DR. PETE'S NURSE AND ADVISED THEM ABOUT DR. FREITAS REQUESTING FOR HOSPITALISTS TO TAKE OVER CARE, DR. FREITAS STATED THAT HE WAS NOT FAMILIAR WITH THE PATIENT. GAVE DR. PETE'S NURSE THE PHONE NUMBER FOR DR. HARLEY AND ADVISED THE NURSE THAT THE PATIENT WAS GOING TO SURGERY AND NEEDED AN H&P FOR HIS SURGERY PROCEDURE.
--- NOTE | 2019-08-15 08:50 | NUR ---
ADVISED CHARGE NURSE SADIE ABOUT DR. PETE BEING NOTIFIED OF DR. FREITAS'S REQUEST FOR THE HOSPITALISTS TO TAKE OVER CARE OF PT AND HAD GIVEN THE PHONE NUMBER TO CALL DR. HARLEY.
[2019-08-15] MEDS: PANTOPRAZOLE 40 MG/VIAL IVP SCH (09:00)
[2019-08-15] MEDS: LACTULOSE 20 GM/30 ML UDCUP PO SCH ×2 (09:00→21:00)
--- NOTE | 2019-08-15 09:15 | NUR ---
PT'S LACTULOSE WAS HELD DUE TO PATIENT UNABLE TO TURN OR CHANGE POSITION TO CHANGE IF HE HAD A BM RESULT FORM LACTULOSE. PT POSITION CANNOT BE CHANGED DUE TO BEING HEMODYNAMICALLY UNSTABLE AND POSITION OF ET TUBE.
[2019-08-15] MEDS: GLIPIZIDE 5 MG TABLET PO SCH (09:46)
[2019-08-15] MEDS: FOLIC ACID/VITAMIN B COMP W-C 1 CAP TAB PO SCH (09:46)
[2019-08-15] MEDS: FAMOTIDINE/PF 20 MG/2 ML VIAL IV SCH (09:47)
[2019-08-15] MEDS: THIAMINE HCL 100 MG/ML 2ML VIAL IVP SCH ×2 (09:47→22:22)
[2019-08-15] MEDS: MIDAZOLAM 50MG-0.9% NS 50ML 50 ML BAG IV SCH ×2 (09:48→22:17)
[2019-08-15] MEDS: EPINEPHRINE 10 MG in SODIUM CHLORIDE 0.9% 250 ML IV SCH (10:45)
[2019-08-15] MEDS ORDERED: SUGAMMADEX SODIUM 200 MG/2 ML VIAL IV ONE (12:23)
[2019-08-15] MEDS ORDERED: ROCURONIUM 10MG/1ML SYR 10 MG/ML ML ONE ×2 (12:28→13:18)
[2019-08-15] MEDS ORDERED: SUCCINYLCHOLINE 200MG/10ML SYR ONE (12:29)
[2019-08-15] MEDS ORDERED: LIDOCAINE 1%-EPI 1:100,000 20 ML VIAL IJ ONE (13:04)
[2019-08-15] MEDS ORDERED: PROPOFOL 10 MG/ML 20ML VIAL IV ONE (13:10)
[2019-08-15] MEDS ORDERED: SODIUM CHLORIDE 0.9% 500ML 500 ML IV ONE (13:25)
[2019-08-15] MEDS ORDERED: GLYCOPYRROLATE 1 MG/5 ML SYRINGE ONE (13:42)
[2019-08-15] MEDS: AMPICILLIN 2GM+NS 100ML 100 ML IV SCH ×2 (14:30→22:20)
[2019-08-15 16:08] LABS: CREATININE 5.3 mg/dL (0.5-1.5); MAGNESIUM 2.3 mg/dL (1.80-2.40); POTASSIUM 3.5 mmol/L (3.5-5.1)
[2019-08-15] MEDS: NALOXONE HCL 0.4 MG/1 ML ML IVP SCH (17:00)
[2019-08-16] VITALS (77 sets, daily range): BP systolic 68–299; BP diastolic 29–267
[2019-08-16] MEDS: AMPICILLIN 2GM+NS 100ML 100 ML IV SCH ×4 (01:29→21:17)
[2019-08-16 02:27] LABS: BASOPHILS % (AUTO) 0.7 % (0.0-5.0); EOSINOPHILS % (AUTO) 2.9 % (0.0-8.0); HEMATOCRIT 32.3 % (42-54); LYMPHOCYTES % (AUTO) 9.6 % (21.0-51.0); MEAN CORPUSCULAR HEMOGLOBIN 28.8 pg (27.0-33.0); MEAN CORPUSCULAR VOLUME 93.1 fL (79-99); MONOCYTES % (AUTO) 13.8 % (3.0-13.0); NEUTROPHILS % (AUTO) 72.5 % (40.0-77.0); PLATELET COUNT (AUTO) 127 K/uL (130-400); RED BLOOD CELL COUNT(AUTO) 3.47 MIL/uL (4.50-6.20); RED CELL DISTRIBUTION WIDTH 14.6 % (11.0-15.5); WHITE BLOOD COUNT (AUTO) 14.7 K/uL (4.8-10.8)
[2019-08-16 02:40] LABS: ALBUMIN 1.7 g/dL (3.5-5.0); BILIRUBIN,TOTAL 0.6 mg/dL (0.2-1.0); CREATININE 4.5 mg/dL (0.5-1.5); MAGNESIUM 2.6 mg/dL (1.80-2.40); PHOSPHORUS 5.2 mg/dL (2.5-4.9); POTASSIUM 3.6 mmol/L (3.5-5.1); TOTAL PROTEIN, SERUM 6.1 g/dL (6.0-8.3)
--- NOTE | 2019-08-16 03:30 | NUR ---
BRADYCARDIA AND HYPOTENSION HYDRAMATIC SPECIALIST/FAMILY AWARE ROSALEE ALANIZ MADE AWARE OF PT STATUS, HX OF CURRENT VISIT. INITIAL EPISODE OF HR IN 50'S WITH BP 85/38, SEE VITALS. .MADE AWARE OF EPI GTT. MADE AWARE MORNING LABS WERE DRAWN AND RESULTS GIVEN. MADE AWARE OF ABG'S DRAWN, RESULTS GIVEN, ORDERS RECEIVED, AND VENT CHANGES MADE. AT 0255 CALLED , NO ANSWER, MESSAGE LEFT ON VOICE MAIL
[2019-08-16] MEDS: EPINEPHRINE 10 MG in SODIUM CHLORIDE 0.9% 250 ML IV SCH ×2 (03:43→17:30)
[2019-08-16 04:46] LABS: ABG BASE EXCESS -2.6 mmol/L (-2.0-3.0); ABG HCO3 23.2 mmol/L (21.0-28.0); ABG OXYGEN SATURATION 91.9 % (95.0-99.0); ABG PCO2 44 mmHg (35-48)
[2019-08-16] MEDS: ENOXAPARIN SODIUM 30 MG/0.3 ML SQ SCH ×2 (05:16→17:49)
[2019-08-16] MEDS: INSULIN HUMULIN R 100 UNIT/ML 3ML SQ SCH ×3 (06:47→17:32)
[2019-08-16] MEDS: GLIPIZIDE 5 MG TABLET PO SCH (08:22)
[2019-08-16] MEDS: LACTULOSE 20 GM/30 ML UDCUP PO SCH ×2 (08:30→21:17)
[2019-08-16] MEDS: FAMOTIDINE/PF 20 MG/2 ML VIAL IV SCH (08:30)
[2019-08-16] MEDS: THIAMINE HCL 100 MG/ML 2ML VIAL IVP SCH ×2 (08:30→21:17)
[2019-08-16] MEDS: FOLIC ACID/VITAMIN B COMP W-C 1 CAP TAB PO SCH (08:31)
[2019-08-16] MEDS: PANTOPRAZOLE 40 MG/VIAL IVP SCH (08:31)
[2019-08-16 08:32] LABS: ABG BASE EXCESS 0.3 mmol/L (-2.0-3.0); ABG HCO3 23.8 mmol/L (21.0-28.0); ABG PCO2 35 mmHg (35-48)
--- NOTE | 2019-08-16 11:05 | NUR ---
f/u visit Sw visited with who sates she made pt confidential because someone named Sandra Desai was calling for info on pt and there is no one in family by that name. reports things are very strained with her and pt's kids related to them not being able to receive pt information unless gives permission. SW provided emotional support.
[2019-08-16] MEDS: PROPOFOL 10 MG/ML 20ML VIAL IV SCH ×2 (14:00→14:20)
--- NOTE | 2019-08-16 14:30 | NUR ---
SALLY HELD DR. KONG AT BEDSIDE TO DO BRONCHOSCOPY; DIPRIBOSSMAN NOT ADMINISTERED DUE TO HYPOTENSION. [facility]
--- NOTE | 2019-08-16 15:05 | NUR ---
V TACH PATIENT HAD 5 BEATS OF V TACH AT 1502. DR. KONG MADE AWARE. PATIENT CONVERTED INTO NORMAL SINUS RHYTHM AND BP IS MAINTAINING AT 138/59 ON 0.04 MCG/KG/MIN VIA ARTERIAL LINE. DR. KONG REQUESTED NEW CONSULT FOR HEART CLINIC. DR. CARDOSO TO BE MADE AWARE OF CONSULT.
--- NOTE | 2019-08-16 15:44 | NUR ---
DR CARDOSO MADE AWARE VIA PHONE ABOUT PT'S EPISODE OF VTACH, NO NEW ORDERS GIVEN AT THIS TIME
--- NOTE | 2019-08-16 16:15 | NUR ---
PER DR CARDOSO, VIA PHONE, PATIENT TO NE SEEN PER DR SNIDER. CALLED OFFICE OF DR SNIDER TO NOTIFY ABOUT PT'S STATUS, SPOKE TO DAMION GILING MD TO RETURN CALL, PENDING TO NOTIFY CARDIOLOGY ABOUT EPISODES OF SUDDEN HYPOTENSION AND EPISODE OF VTACH.
--- NOTE | 2019-08-16 16:50 | NUR ---
NITHYA,RN, DIALYSIS NURSE AT BEDSIDE, DR VALDEZ NOTIFIED PER NITHYA ABOUT PT'S STATUS. DR VALDEZ INSTRUCTED TO HOLD HD TODAY AND TRY TOMORROW, DR KONG NOTIFIED ABOUT EPISODES OF SUDDEN HYPOTENSION AND BRADYCARDIA, NEW ORDERS GIVEN TO DRAW ABG'S AND K LEVEL
--- NOTE | 2019-08-16 17:00 | NUR ---
DR KNOG AT BEDSIDE, SPOKE TO PATIENT'S AND PT'S DAUGHTER FARIHA LA VIA PHONE REGARDING PATIENT'S CURRENT STATUS, PT'S PROGNOSIS BEING POOR, AND MD RECOMMENDING DNR STATUS, PT'S FAMILY VERBALIZING UNDERSTANDING, INCLUDING FARIHA, BUT REQUESTING TO WAIT UNTIL TOMORROW, SHE'S PLANNING TO COME TOMORROW FROM [place].
[2019-08-16 17:10] LABS: ABG BASE EXCESS -2.3 mmol/L (-2.0-3.0); ABG HCO3 21.9 mmol/L (21.0-28.0); ABG OXYGEN SATURATION 97.7 % (95.0-99.0); ABG PCO2 36 mmHg (35-48)
--- NOTE | 2019-08-16 17:15 | NUR ---
HYPOTENSION PATIENT HAS HAD SEVERAL EPISODES OF HYPOTENSION SINCE THE EPISODE OF V TACH AT 1302. DR. KONG AWARE OF EPISODES, CORPORATE LOGISTICS MANAGER PENDING TO SEE PATIENT. EPI DRIP HAS BEEN INCREASED FROM 0.03 TO 0.15 SINCE V TACH EPISODE AT 1302. DR. VALDEZ AWARE OF HYPOTENSION AND HAS CANCELLED DIALYSIS FOR TODAY.
[2019-08-16 17:23] LABS: CREATININE 5.2 mg/dL (0.5-1.5); POTASSIUM 4.2 mmol/L (3.5-5.1)
[2019-08-16 17:28] LABS: ALBUMIN 1.7 g/dL (3.5-5.0); BILIRUBIN,TOTAL 0.8 mg/dL (0.2-1.0); TOTAL PROTEIN, SERUM 6.3 g/dL (6.0-8.3)
--- NOTE | 2019-08-16 19:00 | NUR ---
DAUGHTER NOTIFIED OF BRADYCARDIA/HYPOTENSION DAUGHTER NOTIFIED OF BRADYCARDIA AND HYPOTENSION AT THIS TIME, AFTER BEING SUCTIONED VIA TRACHE. PATIENT HR DOWN TO 48 AND SBP VIA A LINE DOWN TO 65. DAUGHTER, CALCINER FEEDER, IS AWARE OF HER FATHER'S CONDITION AND STATED SHE WISHES TO CONTINUE TO HAVE HER FATHER FULL CODE, BUT IN THE EVENT THAT HE REQUIRES RESUSCITATION, SHE WISHES TO BE CONTACTED IMMEDIATELY. FREDA MCFARLAND AND LOIDA MCFARLAND HAVE BEEN INFORMED OF THE WISHES AND VERBALIZE UNDERSTANDING. Addendum: 08/16/19 at 1910 by NELSY PERDOMO RN AT BEDSIDE WHILE DAUGHTER ON PHONE.
[2019-08-17] VITALS (70 sets, daily range): BP systolic 63–293; BP diastolic 32–182
[2019-08-17] MEDS: AMPICILLIN 2GM+NS 100ML 100 ML IV SCH ×2 (02:04→08:34)
[2019-08-17] MEDS: EPINEPHRINE 10 MG in SODIUM CHLORIDE 0.9% 250 ML IV SCH ×2 (05:48→21:24)
[2019-08-17] MEDS: ENOXAPARIN SODIUM 30 MG/0.3 ML SQ SCH ×2 (05:51→17:16)
[2019-08-17] MEDS: INSULIN HUMULIN R 100 UNIT/ML 3ML SQ SCH ×4 (06:00→18:00)
[2019-08-17 06:29] LABS: HEMATOCRIT 31.6 % (42-54); MEAN CORPUSCULAR HEMOGLOBIN 28.8 pg (27.0-33.0); MEAN CORPUSCULAR HGB CONC 31.3 g/dL (32.0-36.0); MEAN CORPUSCULAR VOLUME 91.9 fL (79-99); PLATELET COUNT (AUTO) 145 K/uL (130-400); RED BLOOD CELL COUNT(AUTO) 3.44 MIL/uL (4.50-6.20); RED CELL DISTRIBUTION WIDTH 14.6 % (11.0-15.5)
[2019-08-17 06:31] LABS: ALBUMIN 1.7 g/dL (3.5-5.0); CREATININE 5.5 mg/dL (0.5-1.5); POTASSIUM 4.4 mmol/L (3.5-5.1); TOTAL PROTEIN, SERUM 6.4 g/dL (6.0-8.3)
[2019-08-17] MEDS: FOLIC ACID/VITAMIN B COMP W-C 1 CAP TAB PO SCH (08:34)
[2019-08-17] MEDS: LACTULOSE 20 GM/30 ML UDCUP PO SCH (08:34)
[2019-08-17] MEDS: PANTOPRAZOLE 40 MG/VIAL IVP SCH (08:34)
[2019-08-17] MEDS: THIAMINE HCL 100 MG/ML 2ML VIAL IVP SCH ×2 (08:35→20:20)
[2019-08-17] MEDS: FAMOTIDINE/PF 20 MG/2 ML VIAL IV SCH (08:35)
[2019-08-17] MEDS: GLIPIZIDE 5 MG TABLET PO SCH (08:49)
--- NOTE | 2019-08-17 09:55 | NUR ---
DAUGHTER AT BEDSIDE DAUGHTER MENA AT BEDSIDE. SHE WAS NOTIFIED ABOUT PATIENT'S CURRENT STATUS.
--- NOTE | 2019-08-17 11:54 | NUR ---
yf/u Sw met with and sister in law. Pt's daughter Kaur, due to arrive from [place] today. Sister in states that when they talked to her last night, Kaur was stating she knows pt would not have wanted this and considering withdrawing. states she is considering letting Kaur be decision maker, but not sure. educated on Surrogate Decision Maker law and is decision maker until decided otherwise. SW to follow and assist as needed
--- NOTE | 2019-08-17 12:30 | NUR ---
AT BEDSIDE DR. KONG AT BEDSIDE TO SEE AND DISCUSS CODE STATUS WITH PATIENT'S FAMILY. PATIENT'S , AND TWO DAUGHTERS, VERONIKA AND FARIHA, ARE AT BEDSIDE TO DISCUSS PLAN OF CARE. FAMILY IS AGREEING TO CONTINUE WITH CARE IS WITH NO PLAN OF ESCALATION. EPI DRIP WILL CONTINUE; DIALYSIS WILL BE ATTEMPTED TOLERATED; BLOOD AND BLOOD PRODUCTS ARE OKAY TO BE GIVEN. FAMILY IS REFUSING TUBE FEEDINGS AT THIS TIME. FAMILY IS AGREEING TO CHANGE CODE STATUS TO DO NOT RESUSCITATE. DNR DOCUMENT HAS BEEN SIGNED BY THE AND ORDER HAS BEEN CHANGED IN THE COMPUTER. FAMILY HAS NO OTHER QUESTIONS OR CONCERNS TO DISCUSS WITH DR KONG AT THIS TIME.
[2019-08-17] MEDS: CEFTRIAXONE SODIUM 1 GM IVP SCH (13:32)
--- NOTE | 2019-08-17 14:30 | NUR ---
DIALYSIS DIALYSIS START TIME AT 1430. EPI DRIP CURRENTLY 0.06 MCG/MIN/HR.
--- NOTE | 2019-08-17 16:38 | NUR ---
BRITTANY SCREEN - LOS X 6 Pt admitted for Fluid overload. Pt with BLE/BUE/Scrotal 3+ Edema. Pt with Trach and NGT in place. Tube feedings recommended, however Pt's family refusal of tube feeding. RD to follow up with Pt family. Pt with DNR status.Pt to have dialysis administered. RD to continue to monitor. Addendum: 08/17/19 at [address] RD Amended: Links added.
[2019-08-18] VITALS (40 sets, daily range): BP systolic 114–201; BP diastolic 51–117
[2019-08-18] MEDS ORDERED: EPINEPHRINE 1 MG/ML AMPULE ONE ×2 (00:39→00:42)
[2019-08-18] MEDS ORDERED: SODIUM CHLORIDE 0.9% 250 ML IV ONE (00:40)
[2019-08-18] MEDS: EPINEPHRINE 10 MG in SODIUM CHLORIDE 0.9% 250 ML IV SCH ×2 (03:51→12:43)
[2019-08-18] MEDS: ENOXAPARIN SODIUM 30 MG/0.3 ML SQ SCH ×2 (04:28→16:27)
[2019-08-18 05:02] LABS: BASOPHILS % (AUTO) 0.6 % (0.0-5.0); EOSINOPHILS % (AUTO) 0.3 % (0.0-8.0); HEMATOCRIT 34.2 % (42-54); LYMPHOCYTES % (AUTO) 4.6 % (21.0-51.0); MEAN CORPUSCULAR HEMOGLOBIN 28.5 pg (27.0-33.0); MEAN CORPUSCULAR HGB CONC 30.1 g/dL (32.0-36.0); MEAN CORPUSCULAR VOLUME 94.7 fL (79-99); NEUTROPHILS % (AUTO) 82.4 % (40.0-77.0); NUCLEATED RED BLOOD CELLS 0.2 % (0.0-0.19); PLATELET COUNT (AUTO) 156 K/uL (130-400); RED BLOOD CELL COUNT(AUTO) 3.61 MIL/uL (4.50-6.20); RED CELL DISTRIBUTION WIDTH 14.9 % (11.0-15.5)
[2019-08-18] MEDS: INSULIN HUMULIN R 100 UNIT/ML 3ML SQ SCH ×4 (06:00→18:00)
[2019-08-18 06:03] LABS: ALBUMIN 1.8 g/dL (3.5-5.0); BILIRUBIN,TOTAL 1.4 mg/dL (0.2-1.0); CREATININE 5.4 mg/dL (0.5-1.5); TOTAL PROTEIN, SERUM 6.9 g/dL (6.0-8.3)
[2019-08-18 07:54] LABS: ABG BASE EXCESS -3.2 mmol/L (-2.0-3.0); ABG HCO3 21.5 mmol/L (21.0-28.0); ABG OXYGEN SATURATION 98.8 % (95.0-99.0); ABG PCO2 37 mmHg (35-48)
[2019-08-18] MEDS: GLIPIZIDE 5 MG TABLET PO SCH (08:09)
[2019-08-18] MEDS: FOLIC ACID/VITAMIN B COMP W-C 1 CAP TAB PO SCH (08:10)
[2019-08-18] MEDS: FAMOTIDINE/PF 20 MG/2 ML VIAL IV SCH (09:00)
[2019-08-18] MEDS: THIAMINE HCL 100 MG/ML 2ML VIAL IVP SCH ×2 (09:37→21:19)
[2019-08-18] MEDS: PANTOPRAZOLE 40 MG/VIAL IVP SCH (09:37)
[2019-08-18] MEDS: CEFTRIAXONE SODIUM 1 GM IVP SCH (12:50)
[2019-08-18] MEDS ORDERED: ALBUMIN (HUMAN) 25% 100 ML IV PRN (13:15)
--- NOTE | 2019-08-18 13:34 | NUR ---
HEMODIALYSIS NURSE Michel LOMBARDI NOTIFIED TO PERFORM TREATMENT TODAY PER DR VALDEZ ORDERS
--- NOTE | 2019-08-18 14:00 | NUR ---
RD FOLLOW UP POOR PROGNOSIS. DIALYSIS TREATMENT HAS BEEN INITIATED. DNR STATUS. LABS REVIEWED. MEDS REVIEWED. SKIN IS INTACT. PT HAS BEEN NPO X SEVERAL DAYS NOW. S/P TRACHEOSTOMY AND PEG. S/P INTUBATED AND SEDATED. POSSIBLE WITHDRAW WHEN OTHER FAMILY MEMBERS ARRIVE, NOTED. RD WILL CONTINUE TO MONITOR AND FOLLOW UP WITH FEEDING RECOMMENDATIONS. Addendum: 08/18/19 at [address] Amended: Links added.
[2019-08-18] MEDS ORDERED: MAGNESIUM CITRATE 296 ML SOLUTION PO SCH (16:45)
--- NOTE | 2019-08-18 17:18 | NUR ---
HEMODIALYSIS IN PROGRESS
--- NOTE | 2019-08-18 19:12 | NUR ---
HAND OFF REPORT WAS GIVEN TO NIKKI MCFARLAND.
[2019-08-19] VITALS (53 sets, daily range): BP systolic 75–169; BP diastolic 29–102
[2019-08-19] MEDS: ENOXAPARIN SODIUM 30 MG/0.3 ML SQ SCH ×2 (04:57→16:59)
[2019-08-19 05:33] LABS: MEAN CORPUSCULAR VOLUME 93.7 fL (79-99); PLATELET COUNT (AUTO) 115 K/uL (130-400); RED BLOOD CELL COUNT(AUTO) 3.31 MIL/uL (4.50-6.20); RED CELL DISTRIBUTION WIDTH 14.9 % (11.0-15.5); WHITE BLOOD COUNT (AUTO) 16.1 K/uL (4.8-10.8)
[2019-08-19 05:59] LABS: ALBUMIN 1.6 g/dL (3.5-5.0); BILIRUBIN,TOTAL 1.1 mg/dL (0.2-1.0); CREATININE 4.9 mg/dL (0.5-1.5); MAGNESIUM 2.3 mg/dL (1.80-2.40); PHOSPHORUS 6.3 mg/dL (2.5-4.9); POTASSIUM 4.3 mmol/L (3.5-5.1); TOTAL PROTEIN, SERUM 6.3 g/dL (6.0-8.3)
[2019-08-19] MEDS: INSULIN HUMULIN R 100 UNIT/ML 3ML SQ SCH ×4 (06:00→18:00)
[2019-08-19] MEDS: EPINEPHRINE 10 MG in SODIUM CHLORIDE 0.9% 250 ML IV SCH (06:18)
[2019-08-19 06:33] LABS: BAND NEUTROPHILS % (MANUAL) 1 % (0-2); BASOPHILS % (MANUAL) 1 % (0-2); EOSINOPHILS % (MANUAL) 2 % (1-6); LYMPHOCYTES % (MANUAL) 2 % (22-44); MAN.DIFF COMMENT-IMPRESSION MANUAL DIFFERENTIAL; MONOCYTES % (MANUAL) 14 % (2-9); PLATELET MORPHOLOGY COMMENT SLIGHTLY DECREASED; SEGMENTED NEUTROPHILS % 80 % (40-70)
[2019-08-19] MEDS: FOLIC ACID/VITAMIN B COMP W-C 1 CAP TAB PO SCH (08:23)
[2019-08-19] MEDS: GLIPIZIDE 5 MG TABLET PO SCH (08:23)
[2019-08-19] MEDS: THIAMINE HCL 100 MG/ML 2ML VIAL IVP SCH ×2 (09:16→20:05)
[2019-08-19] MEDS: PANTOPRAZOLE 40 MG/VIAL IVP SCH (09:16)
[2019-08-19] MEDS: MIDAZOLAM 50MG-0.9% NS 50ML 50 ML BAG IV SCH ×2 (09:16→20:06)
[2019-08-19] MEDS ORDERED: SODIUM CHLORIDE 0.9% 500ML 500 ML IV ONE (09:36)
--- NOTE | 2019-08-19 10:18 | NUR ---
PT HAS BEEN AGITATED AND RESTLESS THIS AM. HE HAS BEEN FLAILING HIS ARMS AND HAS POTENTIAL FOR INJURY/EXTUBATION. I HAVE RESUMED VERSED PRN TO KEEP PT CALM.
--- NOTE | 2019-08-19 10:24 | NUR ---
I HAVE NOTED THAT WHEN PT IS ANXIOUS AND MOVING A LOT HIS BP DROPS AND SLOWLY COMES BACK TO BASELINE WHEN HE CALMS DOWN
--- NOTE | 2019-08-19 11:27 | NUR ---
START FEEDINGS - RD RECOMMENDATIONS NPO X 6 DAYS. NG TUBE AND TRACHEOSTOMY IN PLACE. PT CONTINUES INTUBATED AND SEDATED. HE IS TOLERATING DIALYSIS TREATMENT AT THIS TIME. LABS AND MEDS REVIEWED. SKIN IS INTACT. LBM: 08/14, LOOSE. RD RECOMMENDS TO RECHECK NG TUBE PLACEMENT FOR ADEQUACY RECOMMEND TO START TUBE FEEDING TOLERATED USING NEPRO START FULL STRENGTH AT 20ML/HR - MONITOR TOLERANCE INCREASE RATE BY 5MLS EVERY 5 HRS TOLERATED UNTIL GOAL RATE ACHIEVED GOAL RATE IS 60ML/HR FLUSH WITH 160ML Q6HRS MONITOR TOLERANCE, RESIDUALS, LABS, BM RD WILL CONTINUE TO MONITOR AND FOLLOW UP, THANK YOU. Addendum: 08/19/19 at [address] Amended: Links added.
--- NOTE | 2019-08-19 13:30 | NUR ---
DR KILLIAN ROUNDS AT BEDSIDE. INFORMED OF PT'S RESTLESSNESS/AGITATION/ POTENTIAL FOR INJURY. HE TOLD ME TO CONTINUE VERSED AND ADD FENTANYL DRIP PRN.
[2019-08-19] MEDS ORDERED: FENTANYL CITRATE PF 0.05 MG/ML 1,000 MCG in SODIUM CHLORIDE 0.9% 100 ML IVPB SCH (13:45)
[2019-08-19] MEDS: MIDODRINE HCL 5 MG TABLET PO SCH ×2 (14:06→20:05)
[2019-08-19] MEDS: CEFTRIAXONE SODIUM 1 GM IVP SCH (14:06)
[2019-08-19] MEDS: FENTANYL 1000MCG+NS 100ML IV.SOLN IV SCH (14:12)
--- NOTE | 2019-08-19 16:30 | NUR ---
PT NOW SUFFICIENTLY SEDATED AND CALM.
--- NOTE | 2019-08-19 19:15 | NUR ---
HAND OFF REPORT GIVEN TO NIKKI MCFARLAND
[2019-08-20] VITALS (72 sets, daily range): BP systolic 1–180; BP diastolic 0–92
[2019-08-20] MEDS: ENOXAPARIN SODIUM 30 MG/0.3 ML SQ SCH ×2 (05:26→16:26)
[2019-08-20] MEDS: INSULIN HUMULIN R 100 UNIT/ML 3ML SQ SCH ×4 (06:00→18:00)
[2019-08-20] MEDS: FENTANYL 1000MCG+NS 100ML IV.SOLN IV SCH ×2 (07:01→22:59)
[2019-08-20] MEDS: THIAMINE HCL 100 MG/ML 2ML VIAL IVP SCH ×2 (08:25→20:19)
[2019-08-20] MEDS: MIDODRINE HCL 5 MG TABLET PO SCH ×3 (08:25→20:54)
[2019-08-20] MEDS: FOLIC ACID/VITAMIN B COMP W-C 1 CAP TAB PO SCH (08:25)
[2019-08-20] MEDS: EPINEPHRINE 10 MG in SODIUM CHLORIDE 0.9% 250 ML IV SCH (08:26)
[2019-08-20] MEDS: MIDAZOLAM 50MG-0.9% NS 50ML 50 ML BAG IV SCH ×2 (08:31→22:58)
[2019-08-20] MEDS: PANTOPRAZOLE 40 MG/VIAL IVP SCH (08:59)
[2019-08-20] MEDS: CEFTRIAXONE SODIUM 1 GM IVP SCH (14:02)
[2019-08-20] MEDS: DEXTROSE 50%-WATER 50 ML DISP.SYRIN IV PRN (18:25)
[2019-08-21] VITALS (38 sets, daily range): BP systolic 48–206; BP diastolic 35–99
[2019-08-21 05:02] LABS: HEMATOCRIT 36.9 % (42-54); MEAN CORPUSCULAR HEMOGLOBIN 28.7 pg (27.0-33.0); MEAN CORPUSCULAR HGB CONC 30.4 g/dL (32.0-36.0); MEAN CORPUSCULAR VOLUME 94.6 fL (79-99); NUCLEATED RED BLOOD CELLS 0.1 % (0.0-0.19); PLATELET COUNT (AUTO) 108 K/uL (130-400); WHITE BLOOD COUNT (AUTO) 20.5 K/uL (4.8-10.8)
[2019-08-21 05:52] LABS: CREATININE 6.7 mg/dL (0.5-1.5); MAGNESIUM 2.7 mg/dL (1.80-2.40); PHOSPHORUS 7.5 mg/dL (2.5-4.9); POTASSIUM 4.6 mmol/L (3.5-5.1)
[2019-08-21] MEDS: INSULIN HUMULIN R 100 UNIT/ML 3ML SQ SCH ×3 (06:00→11:18)
[2019-08-21] MEDS: MIDODRINE HCL 5 MG TABLET PO SCH (06:03)
[2019-08-21] MEDS: ENOXAPARIN SODIUM 30 MG/0.3 ML SQ SCH (06:03)
--- NOTE | 2019-08-21 08:11 | NUR ---
PT JEROME HAS EXPRESSED THAT SHE IS NOT SURE WHAT TO DO. SHE IS CONTEMPLATING WITHDRAWAL OF LIFE SUPPORT AND IS WAITING FOR PT DAUGHTERS TO CALL HER. PT DAUGHTER FARIHA CALLED AND I SPOKE TO HER. FARIHA EXPRESSED THAT THINGS WOULD DEPEND ON IF PT TOLERATES ANOTHER DIALYSIS TREATMENT OR CONTINUES TO DETERIORATE. I GAVE HER AN UPDATE AND LET HER KNOW PT IS STILL ON EPINEPHRINE FOR VASOPRESSOR SUPPORT AND SEDATED FOR COMFORT. I WOULD CALL HER BACK NEEDED AND OFFERED MY SUPPORT. PT HAD EPISODE OF HYPOTENSION/BRADYCARDIA LAST NIGHT PER PM NURSE REPORT.NI HAVE PUT IN ORDER FOR HEMODIALYSIS DR CARR TOLD ME WEDNESDAY TO PLAN HD ON ON WEDNESDAY. I ALSO SAW HIS NOTE THAT STATED HD MWF. I HAVE PAGED DR VALDEZ WHO IS SHEETROCK APPLICATOR TODAY TO LET HIM KNOW. I ASKED HD NURSE TO WAIT UNTIL I SPEAK TO DR VALDEZ OR DR CARR. THANK YOU.
--- NOTE | 2019-08-21 08:33 | NUR ---
DR VALDEZ RETURNED PAGED AND CONFIRMED HD TODAY
[2019-08-21] MEDS: FOLIC ACID/VITAMIN B COMP W-C 1 CAP TAB PO SCH (09:34)
[2019-08-21] MEDS: PANTOPRAZOLE 40 MG/VIAL IVP SCH (09:35)
[2019-08-21] MEDS: THIAMINE HCL 100 MG/ML 2ML VIAL IVP SCH (09:35)
[2019-08-21] MEDS: EPINEPHRINE 10 MG in SODIUM CHLORIDE 0.9% 250 ML IV SCH (09:42)
--- NOTE | 2019-08-21 09:50 | NUR ---
VERSED AND FENTANYL OFF
--- NOTE | 2019-08-21 10:50 | NUR ---
RD FOLLOW UP Pt to remain with trickle feedings, Nepro 10mL/HR. Pt remains intubated, with confusion, non-verbal. Possible withdrawal of care as per EMR. RD to continue to monitor. Please notify as nutritional concerns arise. Addendum: 08/21/19 at [address] Amended: Links added.
[2019-08-21] MEDS: DEXTROSE 50%-WATER 50 ML DISP.SYRIN IV PRN ×2 (11:13→12:01)
--- NOTE | 2019-08-21 11:46 | NUR ---
HD NURSE PREPARING FOR TREATMENT- HR 48-50. A-LINE BP NOT CORRELATING WITH CUFF PRESSURES. PLEASE SEE CRITCAL VS FLOW SHEET. I HAVE INCREASED EPI DRIP TO 0.3MCG/KG/MIN.
--- NOTE | 2019-08-21 12:02 | NUR ---
PT HAD 5 SECOND PAUSE-COMPLETE HEART BLOCK. HEMODIALYSIS TERMINATED AFTER 5 MINUTES OF THERAPY. I HAVE PAGED DR VALDEZ TO LET HIM KNOW
--- NOTE | 2019-08-21 12:20 | NUR ---
PT JEROME AND PT DAUGHTER CALLED ALSO. BOTH INFORMED OF HEMODIALYSIS INTOLERANCE.
--- NOTE | 2019-08-21 12:26 | NUR ---
K CANDIE INSIDE SALES ACCOUNT MANAGER NOTIFIED OF EVENTS
--- NOTE | 2019-08-21 13:14 | NUR ---
HAS SIGNED FOR WITHDRAWAL OF LIFE SUPPORT. PT STILL HAS HEARTBEAT. TOSA HAS DECLINED ORGAN PROCUREMENT DUE TO MEDICAL CONDITION PER KASSI WITH TOSKaren. DR MONTGOMERY MADE ROUNDS AND AGREED WITH FAMILY DECISIONS
--- NOTE | 2019-08-21 13:15 | NUR ---
Withdrawal SW and Asbestos Abatement Technician with patient's ,brother and other family in room. signed paperwork to withdraw patient. stated that his children are aware of decision.
--- NOTE | 2019-08-21 13:17 | NUR ---
PT EXTUBATED -OFF VENTILATOR. IV DRIPS STOPPED.
[2019-08-21] MEDS ORDERED: LORAZEPAM 2 MG/ML 1 ML VIAL IVP PRN (13:30)
[2019-08-21] MEDS ORDERED: MORPHINE SULFATE 2 MG/ML 1ML SYG IVP PRN (13:30)
--- NOTE | 2019-08-21 13:42 | NUR ---
HOSPICE CONSULT CANCELLED HOSPICE CONSULT. DR. MICHAELS NOT AVAILABLE 08/20 TO 08/26. CM TO NOTIFY FASHION MERCHANDISER.
--- NOTE | 2019-08-21 13:48 | NUR ---
PRONOUNCEMENT CALLED TO ROOM FAMILY AT BEDSIDE, PATIENT HAS YENNY EXTUBATED AND IS DNR. PT IS UNRESPONSIVE, NO HEART TONES, NO RESPIRATIONS, PUPILS FIXED AND NON-REACTIVE. PT PRONOUNCED AT THIS TIME. PRIMARY NURSE IN ATTENDANCE
--- NOTE | 2019-08-21 16:04 | NUR ---
STACY KOCH-PENDING CLEARANCE FROM EYE BANK
== END 2019-08-21 13:48 | disposition expired | DRG 4 ==
LOC: EDH 17:12 → OBSVTOIN 18:44 → EEVIPCON 18:44 → EDHIP 18:44 → 4DH 20:57 → 2CH 08-12 15:52
PROVIDERS: ADMIT Internal Medicine; ATTEND Internal Medicine
PROC: 5A09357 Assistance with Respiratory Ventilation, Less than 24 Consecutive Hours, Continuous Positive Airway Pressure (ICD-10-PCS; 2019-08-11)
PROC: 02HV33Z Insertion of Infusion Device into Superior Vena Cava, Percutaneous Approach (ICD-10-PCS; 2019-08-12)
PROC: B548ZZA Ultrasonography of Superior Vena Cava, Guidance (ICD-10-PCS; 2019-08-12)
PROC: 5A09457 Assistance with Respiratory Ventilation, 24-96 Consecutive Hours, Continuous Positive Airway Pressure (ICD-10-PCS; 2019-08-12)
PROC: 5A1D70Z Performance of Urinary Filtration, Intermittent, Less than 6 Hours Per Day (ICD-10-PCS; 2019-08-13)
PROC: 5A1955Z Respiratory Ventilation, Greater than 96 Consecutive Hours (ICD-10-PCS; 2019-08-14)
PROC: 0BH17EZ Insertion of Endotracheal Airway into Trachea, Via Natural or Artificial Opening (ICD-10-PCS; 2019-08-14)
PROC: 5A12012 Performance of Cardiac Output, Single, Manual (ICD-10-PCS; 2019-08-14)
PROC: 5A1D70Z Performance of Urinary Filtration, Intermittent, Less than 6 Hours Per Day (ICD-10-PCS; 2019-08-15)
PROC: 0B110F4 Bypass Trachea to Cutaneous with Tracheostomy Device, Open Approach (ICD-10-PCS; principal; 2019-08-15 13:00)
PROC: 5A1D70Z Performance of Urinary Filtration, Intermittent, Less than 6 Hours Per Day (ICD-10-PCS; 2019-08-17)
PROC: 5A1D70Z Performance of Urinary Filtration, Intermittent, Less than 6 Hours Per Day (ICD-10-PCS; 2019-08-18)
PROC: 5A1D70Z Performance of Urinary Filtration, Intermittent, Less than 6 Hours Per Day (ICD-10-PCS; 2019-08-21)
DX: A40.1 Sepsis due to streptococcus, group B (principal); N18.6 End stage renal disease; J96.01 Acute respiratory failure with hypoxia; J96.02 Acute respiratory failure with hypercapnia; G93.41 Metabolic encephalopathy; J18.9 Pneumonia, unspecified organism; I21.4 Non-ST elevation (NSTEMI) myocardial infarction; R65.21 Severe sepsis with septic shock; I13.2 Hypertensive heart and chronic kidney disease with heart failure and with stage 5 chronic kidney disease, or end stage renal disease; N17.9 Acute kidney failure, unspecified; L03.311 Cellulitis of abdominal wall; L03.115 Cellulitis of right lower limb; L03.116 Cellulitis of left lower limb; M62.82 Rhabdomyolysis; Z99.11 Dependence on respirator [ventilator] status; Z68.41 Body mass index [BMI] 40.0-44.9, adult; J95.5 Postprocedural subglottic stenosis; I50.9 Heart failure, unspecified; I89.0 Lymphedema, not elsewhere classified; E66.01 Morbid (severe) obesity due to excess calories; I25.10 Atherosclerotic heart disease of native coronary artery without angina pectoris; N48.89 Other specified disorders of penis; D63.8 Anemia in other chronic diseases classified elsewhere; E11.22 Type 2 diabetes mellitus with diabetic chronic kidney disease; E11.65 Type 2 diabetes mellitus with hyperglycemia; G47.33 Obstructive sleep apnea (adult) (pediatric); I46.9 Cardiac arrest, cause unspecified; J38.6 Stenosis of larynx; K70.31 Alcoholic cirrhosis of liver with ascites; M79.3 Panniculitis, unspecified; Z66 Do not resuscitate; Y83.8 Other surgical procedures as the cause of abnormal reaction of the patient, or of later complication, without mention of misadventure at the time of the procedure; F10.10 Alcohol abuse, uncomplicated; Y90.9 Presence of alcohol in blood, level not specified; I35.0 Nonrheumatic aortic (valve) stenosis; Z82.49 Family history of ischemic heart disease and other diseases of the circulatory system; Z83.3 Family history of diabetes mellitus; Z91.14 Patient's other noncompliance with medication regimen; Z91.15 Patient's noncompliance with renal dialysis; Z91.19 Patient's noncompliance with other medical treatment and regimen; Z99.2 Dependence on renal dialysis
CPT/HCPCS: 31500; 36415; 36556; 36600; 36620; 70360; 71045; 80048; 80053; 82140; 82435; 82550; 82803; 82947; 82948; 83605; 83735; 83874; 83880; 84100; 84132; 84145; 84295; 84443; 84484; 84550; 85018; 85025; 85027; 85610; 85730; 86704; 86706; 87040; 87071; 87077; 87186; 87205; 87340; 87520; 90935; 92950; 93005; 93306; 94002; 94003; 94660; 99291; A4344; A4357; C9113; G0378; J0171; J0290; J0330; J0360; J0461; J0696; J1170; J1265; J1630; J1650; J1815; J1940; J2020; J2060; J2185; J2310; J2405; J2704; J3010; J3370; J3411; J3490; J7030; J7040; J7070; J7120; P9046